=== PATIENT | female | born 1945 | race Caucasian/White ===

== ENCOUNTER 2017-04-04 15:47 | Observation (INO) ==
[2017-04-04] MEDS ORDERED: Ipratropium/Albuterol Neb 3 ML IH ONE (16:05)
[2017-04-04] MEDS ORDERED: methylPREDNISolone 125 MG/2 ML VIAL IVP ONE (16:05)
[2017-04-04] MEDS ORDERED: Azithromycin 500 MG in D5% in Water 250 ML IVPB ONE (16:05)
--- NOTE | 2017-04-04 16:09 | Emergency Department Note ---
Disposition Clinical Impression: Pneumonia Qualifiers: Pneumonia type: due to unspecified organism Laterality: bilateral Lung location : lower lobe of lung Qualified Code(s): J18.9 - Pneumonia, unspecified organism Disposition: Admitted As Inpatient Condition: Good Referrals: Lilliana Kenyon, ARCG[employer] DEVELOPER [Primary Care Provider] - Forms: ED Satisfaction Letter Time of Disposition: 17:28 SOB HPI - General Chief Complaint: ED Shortness of Breath/Dyspnea Stated Complaint: [facility]A from [facility] Time Seen by Provider: 04/04/17 16:00 Source: patient Mode of arrival: EMS Limitations: no limitations Nursing Notes Reviewed: Yes Vital Signs Reviewed: Yes - History of Present Illness 71-year-old female with 5 day history of a cough productive of yellow sputum. She has had intermittent shortness of breath. She has had nausea and vomiting, 2-3 times a day. She has had fever up to 102 degrees yesterday. She denies chest pain. He went to urgent care and had a chest x-ray done. Possibly have pneumonia. She states she was more short of breath there, she feels better now. She was transported by EMS from [facility]. She states she has diarrhea daily, but this is chronic. She also states that she has had some sore throat and rhinorrhea and left ear pain. Pt Subjective Complaint: shortness of breath, cough Onset (ago): day(s) Context: recent illness (5) Severity: moderate Consistency/Duration: intermittent Improves with: oxygen, rest Worsens with: coughing Known history of: asthma Associated symptoms: Reports: nausea/vomiting Treatment prior to arrival: oxygen Cough present: Yes Cough Description: Involuntary Cough Frequency: Intermittent Sputum production: Yes Sputum Amount: Small Sputum Color: Yellow - Related Data Home oxygen amount: none Home Medications Medication Instructions Recorded Confirmed Cyanocobalamin (Vitamin B-12) 2,000 mcg PO DAILY 07/24/15 02/27/16 [Vitamin B-12] Gabapentin [Neurontin] 100 mg PO TID 07/24/15 03/28/16 Gabapentin [Neurontin] 300 mg PO HS 07/24/15 03/28/16 Insulin Glargine [Lantus] 55 unit SQ HS 07/24/15 03/28/16 metFORMIN [Glucophage] 500 mg PO BID 07/24/15 03/28/16 Budesonide/Formoterol 160/4.5 2 puff IH BIDR 03/28/16 03/28/16 [Symbicort 160/4.5] Verapamil [Isoptin] 40 mg PO TID 03/28/16 03/28/16 Aspirin [Lo-Dose Aspirin EC] 81 mg PO 04/04/17 diazePAM [Valium] 2 mg PO BID 04/04/17 04/04/17 Previous Rx's Medication Instructions Recorded Ipratropium [Atrovent Inhaler] 2 puff IH QID PRN #1 inhaler 03/28/16 Allergies Allergy/AdvReac Type Severity Reaction Status Date / Time meperidine [From Demerol] Allergy See Verified 04/04/17 14:00 Comments All systems ED: reviewed and negative except as stated. Constitutional: Reports: fever, chills Eyes: Denies: eye discharge ENT ED: Reports: ear pain, throat pain Cardiovascular: Denies: chest pain Respiratory: Reports: cough, dyspnea, sputum production Gastrointestinal: Reports: nausea, vomiting, diarrhea (Chronic). Denies: abdominal pain Genitourinary: Denies: urgency, dysuria, frequency Musculoskeletal: Denies: back pain, neck pain Neurological: Denies: headache, weakness, numbness, paresthesias Past Medical History - Past Medical History Medical history: Reports: diabetes, hypertension Surgical history: Reports: cholecystectomy, knee replacement, orthopedic, other , other Psychiatric history: Reports: no psych history PERMIT SPECIALIST history: Reports: bilateral tubal ligation - Social History Smoking Status: Never smoker Smokeless Tobacco Status: No Alcohol use: Reports: none Drug use: Reports: none Physical Exam - General Limitations: no limitations General appearance: alert, in no apparent distress - Head Head exam: atraumatic, normocephalic - Eye Eye exam: Present: PERRL, EOMI. Absent: scleral icterus, conjunctival injection - ENT ENT exam: normal oropharynx, mucous membranes moist, TM's normal bilaterally - Neck Neck exam: Present: normal inspection, full ROM, trachea midline. Absent: tenderness, lymphadenopathy - Respiratory Respiratory exam: Present: wheezes, other (Decreased breath sounds in the bases bilaterally). Absent: respiratory distress, accessory muscle use (Rare bilateral expiratory), prolonged expiratory phase - Cardiovascular Cardiovascular exam: Present: regular rate, normal rhythm, normal heart sounds - Abdominal Exam Abdominal exam: Present: soft, Non-Tender, normal bowel sounds. Absent: organomegaly, mass - Extremities Exam Extremities exam: Present: normal inspection, full ROM, normal capillary refill. Absent: pedal edema, calf tenderness - Back Exam Back exam: Absent: CVA tenderness (R), CVA tenderness (L) - Neurological Exam Neurological exam: Present: alert, oriented X3. Absent: motor sensory deficit - Psychiatric Psychiatric exam: Present: normal affect, normal mood - Skin Skin exam: Present: warm, dry, intact, normal color. Absent: cyanosis, diaphoresis Course Vital Signs Temperature 97.7 F 04/04/17 15:49 Pulse Rate 96 04/04/17 15:49 Respiratory Rate 25 04/04/17 15:49 Blood Pressure 157/98 04/04/17 15:49 O2 Sat by Pulse Oximetry 97 04/04/17 15:49 Temperature 97.7 F 04/04/17 17:10 Pulse Rate 92 04/04/17 17:10 Respiratory Rate 16 04/04/17 17:10 Blood Pressure 153/76 04/04/17 17:10 O2 Sat by Pulse Oximetry 98 04/04/17 17:10 Oxygen Delivery Oxygen Delivery Nasal Cannula Shortness of Breath/Dyspnea - MDM Narrative Medical decision making narrative: Differential includes but is not limited to bronchitis with bronchospasm, asthma exacerbation, pneumonia, congestive heart failure, pleural effusion influenza. Her history and x-ray are consistent with pneumonia. There is no evidence of sepsis. She was given nebulizer and Solu-Medrol. Cultures were obtained. She was given Rocephin and azithromycin. I discussed the case with the hospitalist , Dr. Leal. He has accepted patient for admission. - Lab Data Lab results reviewed: Yes I reviewed the patient's lab results. Result diagrams: 04/04/17 16:18 04/04/17 16:18 Lab Results 04/04/17 04/04/17 04/04/17 Range/Units 16:18 16:18 16:18 WBC 6.9 (4.3-11.1) K/mcL RBC 3.54 L (3.82-4.97) M/mcL Hgb 11.1 L (11.5-15.4) g/dL Hct 34.2 L (35.3-44.9) % MCV 96.6 (83.0-100.0) fL MCH 31.4 (28.0-33.3) pg MCHC 32.5 (31.6-35.5) g/dL RDW 12.8 (11.5-14.5) % Plt Count 269 (140-400) K/mcL MPV 9.1 L (9.4-12.4) fL Immature Gran % 0.4 (0-4) % Seg Neutrophils % 56.7 % Lymphocytes % 26.7 % Monocytes % 7.0 % Eosinophils % 8.8 % Basophils % 0.4 % Neutrophils # 3.9 (1.6-8.9) K/mcL Lymphocytes # 1.8 (0.6-4.6) K/mcL Monocytes # 0.5 (0.0-1.3) K/mcL Eosinophils # 0.6 (0.0-0.6) K/mcL Basophils # 0.0 (0.0-0.2) K/mcL Sodium 138 (136-145) mEq/L Potassium 4.4 (3.5-4.5) mEq/L Chloride 103 (98-109) mEq/L Carbon Dioxide 25 (19-29) mEq/L BUN 13 (7-20) mg/dL Creatinine 0.92 (0.57-1.11) mg/dL Est GFR ( Amer) > 60 (> 60) Est GFR (Non-Af Amer) > 60 (> 60) BUN/Creatinine Ratio 14 (6-26) Glucose 255 H (70-99) mg/dL Calculated Osmolality 295 (280-300) Lactic Acid 2.2 (0.5-2.2) mmol/L Calcium 9.4 (8.6-10.8) mg/dL Total Bilirubin 0.3 (0.2-1.2) mg/dL AST 12 (5-34) Units/L ALT 9 (0-55) Units/L Alkaline Phosphatase 60 (38-126) Units/L Troponin I (0-0.03) ng/mL B-Natriuretic Peptide (0-100) pg/mL Serum Total Protein 7.1 (6.0-8.3) g/dL Albumin 3.7 (3.5-5.0) g/dL Globulin 3.4 (2.4-3.5) g/dL Albumin/Globulin Ratio 1.1 (1.1-2.2) 04/04/17 04/04/17 Range/Units 16:18 16:18 WBC (4.3-11.1) K/mcL RBC (3.82-4.97) M/mcL Hgb (11.5-15.4) g/dL Hct (35.3-44.9) % MCV (83.0-100.0) fL MCH (28.0-33.3) pg MCHC (31.6-35.5) g/dL RDW (11.5-14.5) % Plt Count (140-400) K/mcL MPV (9.4-12.4) fL Immature Gran % (0-4) % Seg Neutrophils % % Lymphocytes % % Monocytes % % Eosinophils % % Basophils % % Neutrophils # (1.6-8.9) K/mcL Lymphocytes # (0.6-4.6) K/mcL Monocytes # (0.0-1.3) K/mcL Eosinophils # (0.0-0.6) K/mcL Basophils # (0.0-0.2) K/mcL Sodium (136-145) mEq/L Potassium (3.5-4.5) mEq/L Chloride (98-109) mEq/L Carbon Dioxide (19-29) mEq/L BUN (7-20) mg/dL Creatinine (0.57-1.11) mg/dL Est GFR ( Amer) (> 60) Est GFR (Non-Af Amer) (> 60) BUN/Creatinine Ratio (6-26) Glucose (70-99) mg/dL Calculated Osmolality (280-300) Lactic Acid (0.5-2.2) mmol/L Calcium (8.6-10.8) mg/dL Total Bilirubin (0.2-1.2) mg/dL AST (5-34) Units/L ALT (0-55) Units/L Alkaline Phosphatase (38-126) Units/L Troponin I 0.01 (0-0.03) ng/mL B-Natriuretic Peptide 24 (0-100) pg/mL Serum Total Protein (6.0-8.3) g/dL Albumin (3.5-5.0) g/dL Globulin (2.4-3.5) g/dL Albumin/Globulin Ratio (1.1-2.2) - Radiology Data Radiology results reviewed: Yes I reviewed the patient's radiology results. Chest x-ray done at urgent care shows bibasilar infiltrate and/or effusions. - EKG Data EKG attestation: Yes I reviewed and interpreted this EKG. EKG results narrative: Sinus rhythm, rate of 94, age indeterminate inferior infarct, nonspecific ST-T changes. Rhythm strip shows a sinus rhythm with rate 94, AK interval 162 ms, QRS 86 ms with no other ectopy as interpreted by me. No old EKG available for comparison.
[2017-04-04 16:33] LABS: Basophils % 0.4 %; Eosinophils # 0.6 K/mcL (0.0-0.6); Eosinophils % 8.8 %; Hematocrit 34.2 % (35.3-44.9); Hemoglobin 11.1 g/dL (11.5-15.4); Immature Granulocytes % 0.4 % (0-4); Lymphocytes # 1.8 K/mcL (0.6-4.6); Lymphocytes % 26.7 %; Mean Corpuscular HGB Conc 32.5 g/dL (31.6-35.5); Mean Corpuscular Hemoglobin 31.4 pg (28.0-33.3); Mean Corpuscular Volume 96.6 fL (83.0-100.0); Mean Platelet Volume 9.1 fL (9.4-12.4); Monocytes # 0.5 K/mcL (0.0-1.3); Neutrophils # 3.9 K/mcL (1.6-8.9); Platelet Count 269 K/mcL (140-400); Red Blood Count 3.54 M/mcL (3.82-4.97); Red Cell Distribution Width 12.8 % (11.5-14.5); Segmented Neutrophils % 56.7 %
[2017-04-04 16:53] LABS: Alanine Aminotransferase 9 Units/L (0-55); Albumin 3.7 g/dL (3.5-5.0); Albumin/Globulin Ratio 1.1 (1.1-2.2); Alkaline Phosphatase 60 Units/L (38-126); Aspartate Amino Transferase 12 Units/L (5-34); BUN/Creatinine Ratio 14 (6-26); Bilirubin,Total 0.3 mg/dL (0.2-1.2); Blood Urea Nitrogen 13 mg/dL (7-20); Calcium 9.4 mg/dL (8.6-10.8); Carbon Dioxide 25 mEq/L (19-29); Chloride 103 mEq/L (98-109); Globulin 3.4 g/dL (2.4-3.5); Glucose 255 mg/dL (70-99); Osmolality,Calculated 295 (280-300); Potassium 4.4 mEq/L (3.5-4.5); Sodium 138 mEq/L (136-145); Total Protein 7.1 g/dL (6.0-8.3); eGFR For African Americans > 60 (> 60); eGFR For Non-African Americans > 60 (> 60)
[2017-04-04] MEDS ORDERED: Naloxone 0.4 MG/ML INJ IVP PRN (18:17)
[2017-04-04] MEDS ORDERED: Acetaminophen 325 MG TABLET PO PRN (18:17)
[2017-04-04] MEDS ORDERED: Azithromycin 500 MG in D5% in Water 250 ML IVPB SCH (19:30)
[2017-04-04] MEDS ORDERED: cefTRIAXone 1,000 MG in Water for inj. (sterile) 10 ML IVPB SCH (19:30)
[2017-04-04] MEDS: Ipratropium/Albuterol Neb 3 ML IH SCH ×2 (19:40→23:41)
[2017-04-04] MEDS: Gabapentin 300 MG CAPSULE PO SCH (20:04)
[2017-04-04] MEDS: diazePAM 2 MG TABLET PO SCH (20:04)
[2017-04-04] MEDS: MethylPREDNISolone 40 MG/ML VIAL IVP SCH (20:05)
[2017-04-04] MEDS ORDERED: *HR* Metformin 500 MG TABLET PO SCH (21:00)
[2017-04-04] MEDS ORDERED: Insulin DETEMIR 100 UNIT/ML per UNIT SQ ONE (21:00)
[2017-04-05] MEDS: Ipratropium/Albuterol Neb 3 ML IH SCH ×3 (04:52→17:41)
[2017-04-05] MEDS: MethylPREDNISolone 40 MG/ML VIAL IVP SCH (05:20)
[2017-04-05] MEDS ORDERED: *HR* Enoxaparin 30 MG/0.3 ML SYRINGE SQ SCH (06:00)
[2017-04-05] MEDS: Gabapentin 100 MG CAPSULE PO SCH ×3 (07:55→16:59)
[2017-04-05] MEDS: Cyanocobalamin (B-12) 1,000 MCG TABLET PO SCH (07:59)
[2017-04-05] MEDS: diazePAM 2 MG TABLET PO SCH (08:00)
[2017-04-05] MEDS: Aspirin Enteric Coated 81 MG Tablet PO SCH (08:00)
[2017-04-05] MEDS ORDERED: methylPREDNISolone 125 MG/2 ML VIAL IVP SCH ×2 (08:00→16:00)
[2017-04-05] MEDS ORDERED: *HR* Metformin 500 MG TABLET PO SCH (08:00)
[2017-04-05] MEDS ORDERED: D5% in Water 1,000 ML IVC PRN (11:30)
[2017-04-05] MEDS ORDERED: Dextrose Gel 15 GM PO PRN ×2 (11:30)
[2017-04-05] MEDS ORDERED: *HR* Dextrose 50 % in Water (Syg) 50 ML SYRINGE IVP PRN (11:30)
[2017-04-05] MEDS: Insulin LISPRO 300 UNITS/3 ML VIAL SQ SCH ×2 (12:02→16:33)
[2017-04-05] MEDS ORDERED: diazePAM 2 MG TABLET PO PRN (12:41)
--- NOTE | 2017-04-05 12:43 | Internal Med History&Physical ---
Date of Encounter: 04/05/17 Time of Encounter: 12:10 Assessment and Plan (1) SOB (shortness of breath) Current visit: No Status: Acute Etiology not determined. Will order d-dimer and proceed with chest CT (with contrast if indicated). Room air oximetry will be checked prior to discharge. Further workup will be done as needed. (2) Hypertension Current visit: Yes Status: Chronic He reports using verapamil once daily instead of 3 times a day as her medication list states. Will monitor blood pressure and adjust dose as needed. Qualifiers: Hypertension type: essential hypertension Qualified Code(s): I10 - Essential (primary) hypertension (3) Anemia Current visit: Yes Status: Acute We will order anemia testing. She does not know why she is on aspirin 81 mg daily. Qualifiers: Anemia type: unspecified type Qualified Code(s): D64.9 - Anemia, unspecified Internal Medicine - H&P: HPI Chief complaint: Dyspnea Admitted From: Home Plans for Post Hospital Care: Home History of present illness: Ms. Tomlinson is a 71 year old female who was sent from urgent care to emergency room after she presented with worsening dyspnea. Chest x-ray at urgent care showed possible pneumonia. She was admitted to [facility] floor for ongoing care needs. She reports her dyspnea began approximately 2 years ago but worsened in the past 30 days. She has had a cough productive of yellow sputum. She was diagnosed with asthma several months ago at an emergency room visit but has not had PFTs. She does not use home oxygen. She is a lifelong nonsmoker and denies other chronic lung disease. Past Med Surg Social Fam HX - Past Medical History Medical history: diabetes, hypertension Psychiatric history: no psych history - Past Surgical History Surgical History: cholecystectomy, knee replacement, orthopedic, other, other - Social History Smoking Status: Never smoker Smokeless Tobacco Status: No Alcohol use: none Drug use: none - Family History Mother Hx Family Cardiac Disorders: Yes (grandparents, unknown) Hx Family Respiratory Disorders: Yes (Asthma) Hx Family Cancer: Yes (daughter, appendix cancer. dad neck) Hx Family GI Disorders: No Hx Family Genitourinary Disorders: Yes (diarrhea) Hx Family Endocrine Disorder: Yes (DM) Hx Family Musculoskeletal Disorders: No Hx Family Neuromuscular Disorders: No Hx Family Neurologic Disorders: No Hx Family HEENT Disorders: No Hx Family Autoimmune Disorders: No Hx Family Reproductive Disorders: No Hx Family Psychosocial Disorders: No Hx Family Medical Disorders: No Internal Medicine - H&P: Meds Cyanocobalamin (Vitamin B-12) [Vitamin B-12] 2,000 mcg PO DAILY 07/24/15 [ History] Gabapentin [Neurontin] 100 mg PO TID 07/24/15 [History] Gabapentin [Neurontin] 300 mg PO HS 07/24/15 [History] Insulin Glargine [Lantus] 55 unit SQ HS 07/24/15 [History] metFORMIN [Glucophage] 500 mg PO BID 07/24/15 [History] Budesonide/Formoterol 160/4.5 [Symbicort 160/4.5] 2 puff IH BIDR 03/28/16 [ History] Ipratropium [Atrovent Inhaler] 2 puff IH QID PRN #1 inhaler 03/28/16 [Rx] Verapamil [Isoptin] 40 mg PO TID 03/28/16 [History] Aspirin [Lo-Dose Aspirin EC] 81 mg PO DAILY 04/04/17 [History] diazePAM [Valium] 2 mg PO BID 04/04/17 [History] 3 Allergy/AdvReac Type Severity Reaction Status Date / Time meperidine [From Demerol] Allergy See Verified 04/04/17 14:00 Comments All Systems PM: A 10-system review of systems was performed and is negative for pertinent findings except as documented above in the HPI. Review of systems: Gen.: She states her weight has been stable past few months Cardiovascular: She has history of hypertension. She has occasional sharp chest pains with associated dyspnea in her mid chest area. These been present for several years without diagnosis made. She denies DVT pulmonary embolus or heart failure. Respiratory: As per history of present illness GI: She has had cholecystectomy. She denies disorders of her liver or exocrine pancreas : She has had kidney stones in the past. She has had azotemia in the past but does not have documented chronic kidney disease to her knowledge. She is uncertain if she follows with a roll picker. Neurologic: She denies large distribution strokes or seizures. She has diabetic peripheral neuropathy. She thinks she has had TIAs in the past. Endocrine: She was diagnosed with DM 2 approximately 1999. She has hyperlipidemia but no known thyroid disease Hematology/oncology: She has anemia with history of B12 deficiency. She denies internal malignancies or blood disorders Psychiatric: She denies anxiety depression or other mental health issues Musk skeletal: She has had pain in her neck back and shoulders and follows with a pain specialist. She has bilateral carpal tunnel syndrome. She has had bilateral knee replacements in 1999. She had right femur fracture 2010. She denies gout or osteoporosis. - Constitutional Vitals: Temp Pulse Resp BP Pulse Ox 98.7 F 107 24 112/67 93 04/05/17 11:35 04/05/17 11:35 04/05/17 11:35 04/05/17 11:35 04/05/17 11:35 Exam: Gen.: She is a well-developed well-nourished female sitting on the side of the bed who appears in minimal distress at present time HEENT: Head is atraumatic and normocephalic. Eyes: EOMI. There is no scleral icterus. Mouth: Mucosa is moist. Neck: Supple and nontender. There is no thyromegaly or adenopathy noted. Heart: Regular with rate approximately 108/m. No murmurs or gallops are heard. Lungs: No wheezes or crackles are heard. Abdomen: Soft and nontender. No masses or guarding are noted. Extremities: There is no cyanosis edema or clubbing noted. Dorsalis pedis and posttibial pulses are trace to 1+ palpable bilaterally. Neurologic: Mental status: She is talkative and a good historian. Cranial nerves: Smile is symmetric. Forehead wrinkles bilaterally. Tongue protrudes midline. EOMI. Motor: There is no pronator drift. Cerebellar: Finger to nose is intact bilaterally. Skin: Warm and dry Internal Med - H&P Results - Labs CBC & Chem 7: 04/04/17 16:18 04/04/17 16:18
[2017-04-05] MEDS: Benzonatate 100 MG CAPSULE PO SCH ×3 (13:16→20:12)
--- NOTE | 2017-04-05 14:21 | Electrocardiograph Report ---
[address] [address] Test Date: 2017-04-04 Pat Name: Angelica Tomlinson Department: [id number] Room: [facility] Gender: F Alterations Supervisor: Sanju : 1945 Requested By: Bull Yuen Order Number: [id number] Reading MD: Enid Ibanez Measurements Intervals [place] Rate: 94 P: -6 FL: 162 QRS: 15 QRSD: 86 T: 54 QT: 327 QTc: 379 Interpretive Statements SINUS RHYTHM Electronically Signed On 04-05-2017 14:19:04 EST by Enid Ibanez
[2017-04-05] MEDS ORDERED: cefTRIAXone 1,000 MG in Water for inj. (sterile) 10 ML IVPB SCH (16:00)
[2017-04-05] MEDS ORDERED: Azithromycin 500 MG in D5% in Water 250 ML IVPB SCH (17:00)
[2017-04-05] MEDS: Gabapentin 300 MG CAPSULE PO SCH (20:12)
[2017-04-05] MEDS ORDERED: Insulin LISPRO 300 UNITS/3 ML VIAL SQ SCH (21:00)
[2017-04-05] MEDS ORDERED: Insulin DETEMIR 100 UNIT/ML X5UNITS SQ SCH (21:00)
[2017-04-06] MEDS ORDERED: *HR* Enoxaparin 40 MG/0.4 ML SYRINGE SQ SCH (06:00)
[2017-04-06] MEDS: Ipratropium/Albuterol Neb 3 ML IH PRN ×2 (06:04→13:26)
[2017-04-06 06:19] LABS: Basophils % 0.1 %; Hematocrit 30.3 % (35.3-44.9); Hemoglobin 9.8 g/dL (11.5-15.4); Immature Granulocytes % 1.2 % (0-4); Lymphocytes # 0.9 K/mcL (0.6-4.6); Mean Corpuscular HGB Conc 32.3 g/dL (31.6-35.5); Mean Corpuscular Hemoglobin 31.2 pg (28.0-33.3); Mean Corpuscular Volume 96.5 fL (83.0-100.0); Mean Platelet Volume 9.3 fL (9.4-12.4); Monocytes # 0.8 K/mcL (0.0-1.3); Monocytes % 4.2 %; Neutrophils # 16.5 K/mcL (1.6-8.9); Platelet Count 286 K/mcL (140-400); Red Blood Count 3.14 M/mcL (3.82-4.97); Red Cell Distribution Width 13.2 % (11.5-14.5); Segmented Neutrophils % 89.5 %
[2017-04-06] MEDS: Aspirin Enteric Coated 81 MG Tablet PO SCH (08:22)
[2017-04-06] MEDS: Benzonatate 100 MG CAPSULE PO SCH ×2 (08:22→15:21)
[2017-04-06] MEDS: Insulin LISPRO 300 UNITS/3 ML VIAL SQ SCH ×2 (08:22→12:39)
[2017-04-06] MEDS: Gabapentin 100 MG CAPSULE PO SCH ×2 (08:22→12:39)
[2017-04-06] MEDS: Cyanocobalamin (B-12) 1,000 MCG TABLET PO SCH (08:22)
[2017-04-06 10:43] VITALS: BP 142/68
--- NOTE | 2017-04-06 10:47 | Discharge Summary ---
Date of Encounter: 04/06/17 Time of Encounter: 10:20 - Discharge Diagnosis (1) Hypoxemia Priority: Primary Status: Acute (2) Hypertension Priority: Secondary Status: Chronic Qualifiers: Hypertension type: essential hypertension Qualified Code(s): I10 - Essential (primary) hypertension (3) Anemia Priority: Secondary Status: Acute Qualifiers: Anemia type: unspecified type Qualified Code(s): D64.9 - Anemia, unspecified - Discharge Medications Prescriptions: Cefuroxime PO [Ceftin] 500 mg PO Q12HR #6 tablet Azithromycin [Zithromax] 250 mg PO DAILY #3 tablet Lactobacillus [Culturelle] 1 each PO BID #6 cap.sprink Home Medications: Cyanocobalamin (Vitamin B-12) [Vitamin B-12] 2,000 mcg PO DAILY 07/24/15 [ History] Gabapentin [Neurontin] 100 mg PO TID 07/24/15 [History] Gabapentin [Neurontin] 300 mg PO HS 07/24/15 [History] Insulin Glargine [Lantus] 55 unit SQ HS 07/24/15 [History] metFORMIN [Glucophage] 500 mg PO BID 07/24/15 [History] Budesonide/Formoterol 160/4.5 [Symbicort 160/4.5] 2 puff IH BIDR 03/28/16 [ History] Ipratropium [ATROVENT Inhaler] 2 puff IH QID PRN #1 inhaler 03/28/16 [Rx] Aspirin [Lo-Dose Aspirin EC] 81 mg PO DAILY 04/04/17 [History] diazePAM [Valium] 2 mg PO BID 04/04/17 [History] Valsartan [Diovan] 80 mg PO DAILY 04/05/17 [History] Azithromycin [Zithromax] 250 mg PO DAILY #3 tablet 04/06/17 [Rx] Cefuroxime PO [Ceftin] 500 mg PO Q12HR #6 tablet 04/06/17 [Rx] Lactobacillus [Culturelle] 1 each PO BID #6 cap.sprink 04/06/17 [Rx] Allergies/Adverse Reactions: 3 Allergy/AdvReac Type Severity Reaction Status Date / Time meperidine [From Demerol] Allergy See Verified 04/04/17 14:00 Comments Procedures/tests Complete & Pending: Procedures Performed prior 72 hours Category Date Time Status CTA chest [CT angio chest] [CT] Routine Cat Scan 04/05/17 14:07 Completed Date of admission: 04/04/17 18:03 Primary care physician: Lilliana Kenyon CNP - Patient Status Disposition: Home, Self-Care Condition: Good Functional capacity at discharge: independent ambulation Overall status at discharge: patient is progressing back to baseline - Discharge Instructions Follow Up With: Lilliana Kenyon CNP [Primary Care Provider] - 1 week - Diet and Activity Activity: resume usual activities as tolerated, wear oxygen at all times Diet: advance to your usual diet Hospital course: Ms. Tomlinson is a 71 year old female who was sent from urgent care to emergency room after she presented with worsening dyspnea. Chest x-ray at urgent care showed possible pneumonia. She was admitted to [facility] for ongoing care needs. Initial orders were written by the emergency room physician. I saw her on April 05 and performed the history and physical. D-dimer returned elevated at 758. Chest CT was done but showed no evidence pulmonary embolism or acute pulmonary abnormality. Room air oximetry on April 06 showed saturations decreasing to 87% and patient developed dyspnea within 1 minute of removing oxygen while the patient was still sitting. Oxygen was immediately reapplied for the patient's safety and comfort. She will be prescribed home oxygen at 2 L /m by nasal cannula 06/12 with portable gas & concentrator. Diagnosis is hypoxemia with probable COPD. Consideration for referral to petrographer for PFTs etc. can be made by her PCP. Anemia testing was ordered with results pending at time of discharge. The WBC brandon to 18.4 on the day of discharge with 89.5% segs. She will be given 3 days of anabiotic and probiotic at discharge. On April 06 she felt stable for discharge home. She will follow with her PCP Lilliana Kenyon CNP within 1 week. - Time Spent with Patient Total time spent providing and/or coordinating discharge services: - Constitutional Vitals: Temp Pulse Resp BP Pulse Ox 98.2 F 102 18 142/68 96 04/06/17 10:42 04/06/17 10:42 04/06/17 10:42 04/06/17 10:42 04/06/17 10:42
[2017-04-06 11:07] LABS: % Iron Saturation 25 % (15-50); Iron 79 mcg/dL (50-170); Transferrin 229 mg/dL (180-382)
[2017-04-06 11:24] LABS: Ferritin 61 ng/ml (5-204)
[2017-04-06 11:40] LABS: Folate 8.9 ng/mL (7.0-31.4)
== END 2017-04-06 16:50 | disposition home or self-care (01) ==
LOC: EMEROOPIK 15:47 → INPPIK 15:47
PROVIDERS: ADMIT Internal Medicine; ATTEND Internal Medicine

== ENCOUNTER 2017-06-12 06:38 | Observation (INO) ==
[2017-06-12] MEDS ORDERED: Levofloxacin 750 MG/150 ML 750 MG/150 ML BAG IVPB ONE (06:44)
[2017-06-12] MEDS ORDERED: Ipratropium/Albuterol Neb 3 ML IH ONE (06:44)
[2017-06-12] MEDS ORDERED: methylPREDNISolone 125 MG/2 ML VIAL IVP ONE (06:44)
--- NOTE | 2017-06-12 06:47 | Emergency Department Note ---
Disposition Clinical Impression: Acute exacerbation of chronic obstructive airways disease Disposition: Admitted As Inpatient Condition: Fair Referrals: Lilliana Kenyon, SALES SUPPORT CONSULTANT [Primary Care Provider] - Forms: ED Satisfaction Letter SOB HPI - General Chief Complaint: ED Shortness of Breath/Dyspnea Stated Complaint: KEYA/intermittant chest pain Time Seen by Provider: 06/12/17 06:39 Source: patient, EMS Mode of arrival: EMS Limitations: no limitations Nursing Notes Reviewed: Yes Vital Signs Reviewed: Yes - History of Present Illness The patient reports she has had increased shortness of breath for about a week. This morning she felt like she could not breathe and a squad was called for her to be brought in for evaluation. She reports tightness with her breathing but denies any other specific chest pain to me. She relates that all of her chest discomfort has been associated with her breathing or coughing. She has had a cough but is not bringing up significant phlegm. She states she has been around multiple people who have been ill. She now reports some abdominal discomfort that is also associated with her breathing and cough. She denies nausea, vomiting or diarrhea. She denies any extremity swelling or pain. She has had some chills but no definite fever. She has been on home oxygen at 1 L which EMS has increased to 2 L. EMS transmitted an EKG performed at 6:28 AM. This showed a sinus rhythm with a rate of 101, axis of 68, VT interval 106 and a QT/QTC of 342/413. She has a lot of baseline artifact but no acute ST or T- wave changes for ischemia or infarction. This is unlike interpretation. Pt Subjective Complaint: shortness of breath, cough, pain with inspiration Onset (ago): day(s) Context: recent illness Severity: severe Consistency/Duration: gradually worsening Improves with: oxygen, upright position Worsens with: lying flat, exertion, coughing Known history of: COPD Associated symptoms: Reports: pain with inspiration, cough, wheezing, abdominal pain. Denies: chest pain, fever, sputum production, orthopnea, lower extremity pain, polyuria, polydipsia, parasthesias, palpitations, hemoptysis, diaphoresis , nausea/vomiting, syncope, rash Treatment prior to arrival: oxygen Cough present: Yes Cough Description: Voluntary, Hacking, Bronchospastic Cough Frequency: Intermittent Sputum production: No - Related Data Home oxygen amount: 1 liter Home Medications Medication Instructions Recorded Confirmed Cyanocobalamin (Vitamin B-12) 2,000 mcg PO DAILY 07/24/15 04/04/17 [Vitamin B-12] Gabapentin [Neurontin] 100 mg PO TID 07/24/15 04/04/17 Gabapentin [Neurontin] 300 mg PO HS 07/24/15 04/04/17 Insulin Glargine [Lantus] 55 unit SQ HS 07/24/15 04/04/17 metFORMIN [Glucophage] 500 mg PO BID 07/24/15 04/04/17 Budesonide/Formoterol 160/4.5 2 puff IH BIDR 03/28/16 04/04/17 [Symbicort 160/4.5] Aspirin [Lo-Dose Aspirin EC] 81 mg PO DAILY 04/04/17 04/04/17 diazePAM [Valium] 2 mg PO BID 04/04/17 04/04/17 Valsartan [Diovan] 80 mg PO DAILY 04/05/17 04/05/17 Previous Rx's Medication Instructions Recorded Ipratropium [ATROVENT Inhaler] 2 puff IH QID PRN #1 inhaler 03/28/16 Azithromycin [Zithromax] 250 mg PO DAILY #3 tablet 04/06/17 Cefuroxime PO [Ceftin] 500 mg PO Q12HR #6 tablet 04/06/17 Lactobacillus [Culturelle] 1 each PO BID #6 cap.sprink 04/06/17 Allergies Allergy/AdvReac Type Severity Reaction Status Date / Time meperidine [From Demerol] Allergy See Verified 04/04/17 14:00 Comments All systems ED: reviewed and negative except as stated. Past Medical History - Past Medical History Attestation: Yes The following information was validated with the patient. Source: patient, old records reviewed, nursing notes reviewed Medical history: Reports: asthma, COPD, diabetes, hypertension Surgical history: Reports: cholecystectomy, knee replacement, orthopedic, other , other Psychiatric history: Reports: no psych history POND SAWYER history: Reports: bilateral tubal ligation - Social History Smoking Status: Never smoker Smokeless Tobacco Status: No Alcohol use: Reports: none Drug use: Reports: none Physical Exam - General Limitations: physical limitation General appearance: alert, anxious, in distress - Head Head exam: atraumatic, normocephalic, normal inspection - Eye Eye exam: Present: normal appearance, PERRL, EOMI. Absent: conjunctival injection - ENT ENT exam: normal exam, normal oropharynx, mucous membranes moist - Neck Neck exam: Present: normal inspection, full ROM, trachea midline - Chest Chest inspection: Present: normal inspection, symmetric chest wall rise - Respiratory Respiratory exam: Present: respiratory distress, wheezes, prolonged expiratory phase - Cardiovascular Cardiovascular exam: Present: regular rate, normal rhythm, tachycardia, normal heart sounds - Abdominal Exam Abdominal exam: Present: soft, Non-Tender, normal bowel sounds. Absent: tenderness, distention, guarding, rebound, rigidity, mass, pulsatile mass - Extremities Exam Extremities exam: Present: normal inspection, full ROM, normal capillary refill. Absent: tenderness, pedal edema, calf tenderness - Expanded Lower Extremity Exam Neurovascular/Tendon exam: Present: normal capillary refill. Absent: motor deficit, sensory deficit, tendon deficit Gait: not tested/not observed - Back Exam Back exam: Present: normal inspection, full ROM. Absent: tenderness - Neurological Exam Neurological exam: Present: alert, oriented X3 - Psychiatric Psychiatric exam: Present: agitated, anxious - Skin Skin exam: Present: warm, dry, intact, normal color. Absent: diaphoresis, pallor Course Course Narrative: 0740: All testing has been discussed with the patient and Dr. Leal. I feel be prudent to have her in for continued observation and respiratory protocol. She is improved at this time but is still mildly dyspneic and wheezy. Her blood pressures come down to 153/69 and she is saturating currently at 99% on supplemental oxygen with a heart rate of 92. Verbal orders have been received for her observation period Vital Signs Temperature 97.0 F L 06/12/17 06:42 Pulse Rate 103 06/12/17 06:42 Respiratory Rate 22 06/12/17 06:42 Blood Pressure 181/100 06/12/17 06:42 O2 Sat by Pulse Oximetry 98 06/12/17 06:42 Temperature 97.0 F L 06/12/17 06:42 Pulse Rate 99 06/12/17 07:13 Respiratory Rate 20 06/12/17 07:13 Blood Pressure 151/70 06/12/17 07:13 O2 Sat by Pulse Oximetry 99 06/12/17 07:13 Oxygen Delivery Oxygen Delivery Nasal Cannula Shortness of Breath/Dyspnea - Differential Diagnosis Likely: acute exacerbation of chronic obstructive airways disease (Influenza), congestive heart failure, pneumonia, asthma with exacerbation - Medical Records Medical records reviewed: Yes I reviewed the patient's medical records. - Lab Data Lab results reviewed: Yes I reviewed the patient's lab results. Lab results narrative: Influenza A and influenza B are negative. Result diagrams: 06/12/17 06:55 06/12/17 06:55 Lab Results 06/12/17 06/12/17 06/12/17 Range/Units 06:55 06:55 06:55 WBC 8.8 (4.3-11.1) K/mcL RBC 3.55 L (3.82-4.97) M/mcL Hgb 11.1 L (11.5-15.4) g/dL Hct 34.3 L (35.3-44.9) % MCV 96.6 (83.0-100.0) fL MCH 31.3 (28.0-33.3) pg MCHC 32.4 (31.6-35.5) g/dL RDW 13.0 (11.5-14.5) % Plt Count 272 (140-400) K/mcL MPV 9.1 L (9.4-12.4) fL Immature Gran % 0.3 (0-4) % Seg Neutrophils % 55.7 % Lymphocytes % 20.2 % Monocytes % 6.0 % Eosinophils % 17.3 % Basophils % 0.5 % Neutrophils # 4.9 (1.6-8.9) K/mcL Lymphocytes # 1.8 (0.6-4.6) K/mcL Monocytes # 0.5 (0.0-1.3) K/mcL Eosinophils # 1.5 H (0.0-0.6) K/mcL Basophils # 0.0 (0.0-0.2) K/mcL PT (9.4-12.1) Seconds INR APTT (26.0-36.0) Seconds Sodium 137 (136-145) mEq/L Potassium 3.8 (3.5-5.1) mEq/L Chloride 101 (98-107) mEq/L Carbon Dioxide 28 (23-29) mEq/L BUN 11 (8-23) mg/dL Creatinine 0.67 (0.60-1.20) mg/dL Est GFR ( Amer) > 60 (> 60) Est GFR (Non-Af Amer) > 60 (> 60) BUN/Creatinine Ratio 16 (6-26) Glucose 220 H (70-105) mg/dL Calculated Osmolality 290 (280-300) Lactic Acid 1.1 (0.5-2.2) mmol/L Calcium 9.7 (8.6-10.3) mg/dL Troponin I (< 0.04) ng/mL B-Natriuretic Peptide (Less than 100) pg/mL Urine Color (Yellow) Urine Clarity (Clear) Urine pH (5.0-8.0) pH Units Ur Specific [place] (1.010-1.025) Urine Protein (Neg-Trace) mg/dL Urine Glucose (UA) (Normal) mg/dL Urine Ketones (Negative) mg/dL Urine Blood (Negative) Urine Nitrite (Negative) Urine Bilirubin (Negative) Urine Urobilinogen (Normal) mg/dL Ur Leukocyte Esterase (Negative) Urine Microscopic RBC (0-3) per hpf Urine Microscopic WBC (0-3) per hpf Ur Squamous Epith Cells (None-Few) per lpf Urine Bacteria (None-Few) per hpf Hyaline Casts (None-Few) per lpf Urine Mucus (Few) Ur Culture Indicated? (NO) 06/12/17 06/12/17 06/12/17 Range/Units 06:55 06:55 06:55 WBC (4.3-11.1) K/mcL RBC (3.82-4.97) M/mcL Hgb (11.5-15.4) g/dL Hct (35.3-44.9) % MCV (83.0-100.0) fL MCH (28.0-33.3) pg MCHC (31.6-35.5) g/dL RDW (11.5-14.5) % Plt Count (140-400) K/mcL MPV (9.4-12.4) fL Immature Gran % (0-4) % Seg Neutrophils % % Lymphocytes % % Monocytes % % Eosinophils % % Basophils % % Neutrophils # (1.6-8.9) K/mcL Lymphocytes # (0.6-4.6) K/mcL Monocytes # (0.0-1.3) K/mcL Eosinophils # (0.0-0.6) K/mcL Basophils # (0.0-0.2) K/mcL PT 10.5 (9.4-12.1) Seconds INR 1.0 APTT 27.8 (26.0-36.0) Seconds Sodium (136-145) mEq/L Potassium (3.5-5.1) mEq/L Chloride (98-107) mEq/L Carbon Dioxide (23-29) mEq/L BUN (8-23) mg/dL Creatinine (0.60-1.20) mg/dL Est GFR ( Amer) (> 60) Est GFR (Non-Af Amer) (> 60) BUN/Creatinine Ratio (6-26) Glucose (70-105) mg/dL Calculated Osmolality (280-300) Lactic Acid (0.5-2.2) mmol/L Calcium (8.6-10.3) mg/dL Troponin I < 0.03 (< 0.04) ng/mL B-Natriuretic Peptide 27 (Less than 100) pg/mL Urine Color (Yellow) Urine Clarity (Clear) Urine pH (5.0-8.0) pH Units Ur Specific [place] (1.010-1.025) Urine Protein (Neg-Trace) mg/dL Urine Glucose (UA) (Normal) mg/dL Urine Ketones (Negative) mg/dL Urine Blood (Negative) Urine Nitrite (Negative) Urine Bilirubin (Negative) Urine Urobilinogen (Normal) mg/dL Ur Leukocyte Esterase (Negative) Urine Microscopic RBC (0-3) per hpf Urine Microscopic WBC (0-3) per hpf Ur Squamous Epith Cells (None-Few) per lpf Urine Bacteria (None-Few) per hpf Hyaline Casts (None-Few) per lpf Urine Mucus (Few) Ur Culture Indicated? (NO) 06/12/17 Range/Units 07:27 WBC (4.3-11.1) K/mcL RBC (3.82-4.97) M/mcL Hgb (11.5-15.4) g/dL Hct (35.3-44.9) % MCV (83.0-100.0) fL MCH (28.0-33.3) pg MCHC (31.6-35.5) g/dL RDW (11.5-14.5) % Plt Count (140-400) K/mcL MPV (9.4-12.4) fL Immature Gran % (0-4) % Seg Neutrophils % % Lymphocytes % % Monocytes % % Eosinophils % % Basophils % % Neutrophils # (1.6-8.9) K/mcL Lymphocytes # (0.6-4.6) K/mcL Monocytes # (0.0-1.3) K/mcL Eosinophils # (0.0-0.6) K/mcL Basophils # (0.0-0.2) K/mcL PT (9.4-12.1) Seconds INR APTT (26.0-36.0) Seconds Sodium (136-145) mEq/L Potassium (3.5-5.1) mEq/L Chloride (98-107) mEq/L Carbon Dioxide (23-29) mEq/L BUN (8-23) mg/dL Creatinine (0.60-1.20) mg/dL Est GFR ( Amer) (> 60) Est GFR (Non-Af Amer) (> 60) BUN/Creatinine Ratio (6-26) Glucose (70-105) mg/dL Calculated Osmolality (280-300) Lactic Acid (0.5-2.2) mmol/L Calcium (8.6-10.3) mg/dL Troponin I (< 0.04) ng/mL B-Natriuretic Peptide (Less than 100) pg/mL Urine Color Yellow (Yellow) Urine Clarity Clear (Clear) Urine pH 5.0 (5.0-8.0) pH Units Ur Specific [place] 1.025 (1.010-1.025) Urine Protein 30 H (Neg-Trace) mg/dL Urine Glucose (UA) Normal (Normal) mg/dL Urine Ketones Negative (Negative) mg/dL Urine Blood Trace-intact H (Negative) Urine Nitrite Negative (Negative) Urine Bilirubin Negative (Negative) Urine Urobilinogen Normal (Normal) mg/dL Ur Leukocyte Esterase Trace H (Negative) Urine Microscopic RBC 0-3 (0-3) per hpf Urine Microscopic WBC 5-15 H (0-3) per hpf Ur Squamous Epith Cells Moderate H (None-Few) per lpf Urine Bacteria Few (None-Few) per hpf Hyaline Casts Few (None-Few) per lpf Urine Mucus Few (Few) Ur Culture Indicated? YES A (NO) - Radiology Data Radiology results reviewed: Yes I reviewed the patient's radiology results. Single view chest x-ray is performed. This does not demonstrate evidence for infiltrate, effusion, pneumothorax, foreign body or heart failure. Patient has mild hyperexpansion consistent with COPD. The cardiac silhouette is normal. I do not see abnormality to the osseous structures of the chest. This is on my interpretation. Impressions Chest X-Ray 06/12/17 06:44 IMPRESSION: No acute cardiopulmonary process. D/ / Kenneth Zhou MD / Kenneth Zhou MD Interpreting Provider: Kenneth Zhou MD - EKG Data EKG attestation: Yes I reviewed and interpreted this EKG. EKG shows normal: Reports: sinus rhythm, axis, intervals, QRS complexes, ST-T waves Rate: Reports: tachycardia (104) Interpretation: Reports: no acute changes, nonspecific ST-T wave changes
[2017-06-12 07:11] LABS: Basophils % 0.5 %; Eosinophils # 1.5 K/mcL (0.0-0.6); Eosinophils % 17.3 %; Hematocrit 34.3 % (35.3-44.9); Hemoglobin 11.1 g/dL (11.5-15.4); Immature Granulocytes % 0.3 % (0-4); Lymphocytes # 1.8 K/mcL (0.6-4.6); Lymphocytes % 20.2 %; Mean Corpuscular HGB Conc 32.4 g/dL (31.6-35.5); Mean Corpuscular Hemoglobin 31.3 pg (28.0-33.3); Mean Corpuscular Volume 96.6 fL (83.0-100.0); Mean Platelet Volume 9.1 fL (9.4-12.4); Monocytes # 0.5 K/mcL (0.0-1.3); Neutrophils # 4.9 K/mcL (1.6-8.9); Platelet Count 272 K/mcL (140-400); Red Blood Count 3.55 M/mcL (3.82-4.97); Segmented Neutrophils % 55.7 %
[2017-06-12 07:17] LABS: Prothrombin Time 10.5 Seconds (9.4-12.1)
[2017-06-12 07:20] LABS: Activated Partial Thrombo Time 27.8 Seconds (26.0-36.0)
[2017-06-12 07:28] LABS: BUN/Creatinine Ratio 16 (6-26); Blood Urea Nitrogen 11 mg/dL (8-23); Calcium 9.7 mg/dL (8.6-10.3); Carbon Dioxide 28 mEq/L (23-29); Chloride 101 mEq/L (98-107); Glucose 220 mg/dL (70-105); Osmolality,Calculated 290 (280-300); Potassium 3.8 mEq/L (3.5-5.1); Sodium 137 mEq/L (136-145); eGFR For African Americans > 60 (> 60); eGFR For Non-African Americans > 60 (> 60)
[2017-06-12 07:32] LABS: Bilirubin,Urine Negative (Negative); Blood,Urine Trace-intact (Negative); Clarity,Urine Clear (Clear); Color,Urine Yellow (Yellow); Glucose,Urine (UA) Normal (Normal); Ketones,Urine Negative (Negative); Leukocyte Esterase,Urine Trace (Negative); Nitrite,Urine Negative (Negative); Protein,Urine 30 mg/dL (Neg-Trace); Specific Gravity,Urine 1.025 (1.010-1.025); Urobilinogen,Urine Normal (Normal)
[2017-06-12 07:39] LABS: RBC,Urine 0-3 per hpf (0-3); Squamous Epithelial Cell,Urine Moderate per lpf (None-Few)
[2017-06-12 07:40] LABS: Bacteria,Urine Few per hpf (None-Few); Hyaline Casts,Urine Few per lpf (None-Few); Mucus,Urine Few (Few)
[2017-06-12] MEDS ORDERED: D5% in Water 1,000 ML IVC PRN (08:05)
[2017-06-12] MEDS ORDERED: Acetaminophen 325 MG TABLET PO PRN (08:05)
[2017-06-12] MEDS ORDERED: predniSONE 20 MG TABLET PO SCH (08:05)
[2017-06-12] MEDS ORDERED: MOM Conc 10 ML UD.LIQ PO PRN (08:05)
[2017-06-12] MEDS ORDERED: Dextrose Gel 15 GM PO PRN ×2 (08:05)
[2017-06-12] MEDS ORDERED: *HR* Dextrose 50 % in Water (Syg) 50 ML SYRINGE IVP PRN (08:05)
[2017-06-12] MEDS ORDERED: Naloxone 0.4 MG/ML INJ IVP PRN (08:05)
[2017-06-12] MEDS: Ondansetron 4 MG/2 ML VIAL IVP PRN (09:14)
[2017-06-12] MEDS ORDERED: Ipratropium/Albuterol Neb 3 ML IH SCH (10:00)
--- NOTE | 2017-06-12 11:15 | Internal Med History&Physical ---
Date of Encounter: 06/12/17 Time of Encounter: 10:45 Assessment and Plan (1) Acute exacerbation of chronic obstructive airways disease Current visit: Yes Status: Acute Will restart Symbicort and continue Spiriva. Will use albuterol nebs as needed. (2) Anemia Current visit: No Status: Acute Anemia testing 04/06/2017 showed iron 79, transferrin saturation 25%, transferrin 229, ferritin 61, B12 1464, and folate 8.9. Hemoglobin stable at 11.1. Will monitor as needed. Qualifiers: Anemia type: unspecified type Qualified Code(s): D64.9 - Anemia, unspecified (3) Hypertension Current visit: No Status: Chronic Continue Diovan Qualifiers: Hypertension type: essential hypertension Qualified Code(s): I10 - Essential (primary) hypertension (4) DM type 2 (diabetes mellitus, type 2) Current visit: Yes Status: Chronic Hemoglobin A1c was 10.6% on 12/21/2013. Will recheck in a.m. Qualifiers: Diabetes mellitus complication status: without complication Diabetes mellitus fci insulin use: with termite control servicer use Qualified Code(s): E11.9 - Type 2 diabetes mellitus without complications; Z79.4 - terminal superintendent (current) use of insulin; Z79.4 - group home (current) use of insulin; Z79.4 - terminal superintendent ( current) use of insulin; Z79.4 - terminal superintendent (current) use of insulin Internal Medicine - H&P: HPI Chief complaint: Dyspnea Admitted From: Emergency Dept Plans for Post Hospital Care: Home History of present illness: Ms. Tomlinson is a 72 year old female who came to emergency room complaining of increased dyspnea with diarrhea and dry heaves for approximately one week. She had minimal cough with productivity. She had soreness in her upper chest. She states she ran out of her Symbicort inhaler approximately 1 week ago and did not get refills. She was evaluated in emergency room and felt to have exacerbation of COPD and was admitted to [facility] floor for ongoing care needs. She was hospitalized at [facility] March 2017 with dyspnea. She was found to have hypoxemia and has used oxygen 24/7 since discharge. She is a lifelong nonsmoker but has been diagnosed with asthma and hypoxemia. She is scheduled to see a sales team manager at [facility] 07/18/2017. Chest CT 04/04/2017 showed no acute abnormalities. Past Med Surg Social Fam HX - Past Medical History Medical history: asthma, COPD, diabetes, hypertension Psychiatric history: no psych history - Past Surgical History Surgical History: cholecystectomy, knee replacement, orthopedic, other, other - Social History Smoking Status: Never smoker Smokeless Tobacco Status: No Alcohol use: none Drug use: none - Family History Mother Hx Family Cardiac Disorders: Yes (grandparents, unknown) Hx Family Respiratory Disorders: Yes (Asthma) Hx Family Cancer: Yes (daughter, appendix cancer. dad neck) Hx Family GI Disorders: No Hx Family Endocrine Disorder: Yes (DM) Hx Family Neuromuscular Disorders: No Hx Family Neurologic Disorders: No Hx Family HEENT Disorders: No Hx Family Autoimmune Disorders: No Internal Medicine - H&P: Meds Cyanocobalamin (Vitamin B-12) [Vitamin B-12] 2,000 mcg PO DAILY 07/24/15 [ History] Gabapentin [Neurontin] 100 mg PO TID 07/24/15 [History] Gabapentin [Neurontin] 300 mg PO HS 07/24/15 [History] Insulin Glargine [Lantus] 55 unit SQ HS 07/24/15 [History] metFORMIN [Glucophage] 500 mg PO BID 07/24/15 [History] Budesonide/Formoterol 160/4.5 [Symbicort 160/4.5] 2 puff IH BIDR 03/28/16 [ History] Ipratropium [ATROVENT Inhaler] 2 puff IH QID PRN #1 inhaler 03/28/16 [Rx] Aspirin [Lo-Dose Aspirin EC] 81 mg PO DAILY 04/04/17 [History] Valsartan [Diovan] 80 mg PO DAILY 04/05/17 [History] 3 Allergy/AdvReac Type Severity Reaction Status Date / Time meperidine [From Demerol] Allergy See Verified 04/04/17 14:00 Comments All Systems PM: A 10-system review of systems was performed and is negative for pertinent findings except as documented above in the HPI. Review of systems: Gen.: Her weight has decreased from 71.299 kg on 04/06/2017 to 68.039 kg on admission now. Cardiovascular: She has history of hypertension. She has occasional sharp chest pains with associated dyspnea in her mid chest area. These been present for several years without diagnosis made. She denies DVT pulmonary embolus or heart failure. Respiratory: As per history of present illness GI: She has had cholecystectomy. She denies disorders of her liver or exocrine pancreas. She states she has had loose stools frequently over the last 15 years. : She has had kidney stones in the past. She has had azotemia in the past but does not have documented chronic kidney disease to her knowledge. Neurologic: She denies large distribution strokes or seizures. She has diabetic peripheral neuropathy. She thinks she has had TIAs in the past. Endocrine: She was diagnosed with DM 2 approximately 1999. She has hyperlipidemia but no known thyroid disease Hematology/oncology: She has anemia with history of B12 deficiency. She denies internal malignancies or blood disorders Psychiatric: She denies anxiety depression or other mental health issues Musk skeletal: She has had pain in her neck back and shoulders and follows with a pain specialist. She has bilateral carpal tunnel syndrome. She has had bilateral knee replacements in 1999. She had right femur fracture 2010. She denies gout or osteoporosis. - Constitutional Vitals: Temp Pulse Resp BP Pulse Ox 98.4 F 91 20 147/83 98 06/12/17 08:25 06/12/17 08:25 06/12/17 08:27 06/12/17 08:27 06/12/17 08:36 Exam: Gen.: She is a well-developed well-nourished female who appears in no acute distress at present time HEENT: Head is atraumatic and normocephalic. Eyes: EOMI. There is no scleral icterus. Mouth: Mucosa is moist. Neck: Supple and nontender. There is no thyromegaly or adenopathy noted. Heart: Regular without murmurs gallops or ectopics Lungs: She has diminished breath sounds diffusely. No expiratory wheezing is heard. Abdomen: Bowel sounds are diminished. The abdomen is nontender to palpation. Extremities: She is wearing MERRY hose bilaterally which I did not remove. There is no edema of the dorsum of the feet or lower legs. She has mild DJD changes of her hands. Neurologic: Mental status: She is talkative and a good historian. Cranial nerves: Smile is symmetric. Forehead wrinkles bilaterally. Tongue protrudes midline. EOMI. Motor: There is no pronator drift. Cerebellar: finger to nose intact bilaterally. Skin: Warm and dry Internal Med - H&P Results - Labs CBC & Chem 7: 06/12/17 06:55 06/12/17 06:55
[2017-06-12] MEDS: Budesonide/Formoterol 160/4.5 MDI IH SCH ×2 (11:27→21:50)
[2017-06-12] MEDS: Insulin LISPRO 300 UNITS/3 ML VIAL SQ SCH ×3 (11:32→22:06)
[2017-06-12] MEDS: Valsartan 80 MG TABLET PO SCH (14:19)
[2017-06-12] MEDS: predniSONE 20 MG TABLET PO SCH (16:21)
[2017-06-12] MEDS: Albuterol 2.5 MG/3 ML NEBULIZER IH PRN ×2 (18:08→21:50)
[2017-06-12] MEDS: Lactobacillus 1 EACH CAP.SPRINK PO SCH (19:38)
[2017-06-13] MEDS: Albuterol 2.5 MG/3 ML NEBULIZER IH PRN ×3 (00:16→05:26)
[2017-06-13] MEDS: Gabapentin 300 MG CAPSULE PO SCH ×2 (01:08→20:24)
[2017-06-13] MEDS: Ondansetron 4 MG/2 ML VIAL IVP PRN (05:11)
[2017-06-13] MEDS: Levofloxacin 750 MG/150 ML 750 MG/150 ML BAG IVPB SCH (05:18)
[2017-06-13 06:58] LABS: Basophils % 0.1 %; Hematocrit 31.1 % (35.3-44.9); Hemoglobin 10.3 g/dL (11.5-15.4); Immature Granulocytes % 0.5 % (0-4); Lymphocytes # 0.8 K/mcL (0.6-4.6); Lymphocytes % 6.7 %; Mean Corpuscular HGB Conc 33.1 g/dL (31.6-35.5); Mean Corpuscular Hemoglobin 31.9 pg (28.0-33.3); Mean Corpuscular Volume 96.3 fL (83.0-100.0); Monocytes # 0.7 K/mcL (0.0-1.3); Monocytes % 6.1 %; Neutrophils # 10.3 K/mcL (1.6-8.9); Platelet Count 270 K/mcL (140-400); Red Blood Count 3.23 M/mcL (3.82-4.97); Red Cell Distribution Width 13.1 % (11.5-14.5); Segmented Neutrophils % 86.6 %
[2017-06-13] MEDS: Insulin LISPRO 300 UNITS/3 ML VIAL SQ SCH ×4 (07:54→20:10)
[2017-06-13] MEDS: Valsartan 80 MG TABLET PO SCH (08:06)
[2017-06-13] MEDS: Lactobacillus 1 EACH CAP.SPRINK PO SCH ×2 (08:06→20:24)
[2017-06-13] MEDS: predniSONE 20 MG TABLET PO SCH (08:06)
[2017-06-13] MEDS: Budesonide/Formoterol 160/4.5 MDI IH SCH ×2 (09:27→22:01)
[2017-06-13] MEDS: Tiotropium 18 MCG inhalation IH SCH (09:28)
[2017-06-13] MEDS ORDERED: MOM Conc 10 ML UD.LIQ PO PRN (09:41)
[2017-06-13] MEDS ORDERED: Ondansetron 4 MG/2 ML VIAL IVP PRN (09:42)
[2017-06-13] MEDS ORDERED: Insulin DETEMIR 100 UNIT/ML X5UNITS SQ SCH (09:45)
--- NOTE | 2017-06-13 09:45 | Internal Med Progress Note ---
Date of Encounter: 06/13/17 Time of Encounter: 09:35 - Assessment and plan (1) Acute exacerbation of chronic obstructive airways disease Current Visit: Yes Status: Acute Assessment and plan: June 13. Continue Symbicort, Spiriva and prn albuterol nebs. (2) Anemia Current Visit: No Status: Acute Assessment and plan: June 13. Hemoglobin decreased slightly to 10.3. We will continue to monitor labs. Qualifiers: Anemia type: unspecified type Qualified Code(s): D64.9 - Anemia, unspecified (3) Hypertension Current Visit: No Status: Chronic Assessment and plan: June 13. Continue Diovan. Will add low-dose metoprolol to improve blood pressure and heart rate. Qualifiers: Hypertension type: essential hypertension Qualified Code(s): I10 - Essential (primary) hypertension (4) DM type 2 (diabetes mellitus, type 2) Current Visit: Yes Status: Chronic Assessment and plan: June 13. Hemoglobin A1c is pending. We will restart Glucophage and Levemir/ Lantus Qualifiers: Diabetes mellitus complication status: without complication Diabetes mellitus longterm insulin use: with longterm use Qualified Code(s): E11.9 - Type 2 diabetes mellitus without complications; Z79.4 - penitentiary (current) use of insulin; Z79.4 - lobsterman (current) use of insulin; Z79.4 - lobsterman ( current) use of insulin; Z79.4 - lobsterman (current) use of insulin - Subjective Interval history: June 13. She has no new complaints except feels nauseated. She does not feel her dyspnea has significantly improved. - Constitutional Vitals: Temp Pulse Resp BP Pulse Ox 97.5 F L 116 18 147/64 100 06/13/17 06:32 06/13/17 08:04 06/13/17 09:27 06/13/17 08:04 06/13/17 09:27 Exam: She is resting comfortably in bed. Her lungs show diminished breath sounds but no wheezing. Heart rate is approximately 110/m. I reviewed her medications and lab results. Internal Medicine: Result - Labs CBC & Chem 7: 06/13/17 06:50 06/12/17 06:55 Labs: Short CBC 06/13/17 Range/Units 06:50 WBC 11.9 H (4.3-11.1) K/mcL Hgb 10.3 L (11.5-15.4) g/dL Hct 31.1 L (35.3-44.9) % Plt Count 270 (140-400) K/mcL Neutrophils # 10.3 H (1.6-8.9) K/mcL - ABG Interpretation ABG results: PT/INR, D-dimer PT 10.5 Seconds (9.4-12.1) 06/12/17 06:55 Consult Discharge Plan - Plan Referrals: Lilliana Kenyon, [employer] D[employer]ER [Primary Care Provider] - 1 week
[2017-06-13] MEDS ORDERED: ALPRAZolam 0.5 MG TABLET PO PRN (10:26)
[2017-06-13 11:00] LABS: Hemoglobin A1C 7.7 %
[2017-06-13] MEDS: *HR* Metformin 500 MG TABLET PO SCH (16:15)
[2017-06-14 04:04] LABS: Basophils % 0.2 %; Eosinophils % 0.1 %; Hematocrit 30.1 % (35.3-44.9); Hemoglobin 9.7 g/dL (11.5-15.4); Immature Granulocytes % 0.5 % (0-4); Lymphocytes # 1.8 K/mcL (0.6-4.6); Lymphocytes % 18.3 %; Mean Corpuscular HGB Conc 32.2 g/dL (31.6-35.5); Mean Corpuscular Hemoglobin 31.6 pg (28.0-33.3); Mean Platelet Volume 9.3 fL (9.4-12.4); Monocytes # 0.6 K/mcL (0.0-1.3); Monocytes % 6.3 %; Neutrophils # 7.3 K/mcL (1.6-8.9); Platelet Count 260 K/mcL (140-400); Red Blood Count 3.07 M/mcL (3.82-4.97); Red Cell Distribution Width 13.4 % (11.5-14.5); Segmented Neutrophils % 74.6 %
[2017-06-14] MEDS: Levofloxacin 750 MG/150 ML 750 MG/150 ML BAG IVPB SCH (05:33)
[2017-06-14 06:35] LABS: Carbon Dioxide 29 mEq/L (23-29); Chloride 102 mEq/L (98-107); Potassium 4.3 mEq/L (3.5-5.1); Sodium 138 mEq/L (136-145)
[2017-06-14 06:36] LABS: BUN/Creatinine Ratio 23 (6-26); Blood Urea Nitrogen 19 mg/dL (8-23); Calcium 8.8 mg/dL (8.6-10.3); Glucose 185 mg/dL (70-105); Osmolality,Calculated 293 (280-300); eGFR For African Americans > 60 (> 60); eGFR For Non-African Americans > 60 (> 60)
[2017-06-14 06:48] VITALS: BP 108/61
[2017-06-14] MEDS: Valsartan 80 MG TABLET PO SCH (08:53)
[2017-06-14] MEDS: *HR* Metformin 500 MG TABLET PO SCH (08:53)
[2017-06-14] MEDS: Lactobacillus 1 EACH CAP.SPRINK PO SCH (08:53)
[2017-06-14] MEDS: Insulin LISPRO 300 UNITS/3 ML VIAL SQ SCH ×2 (08:54→12:47)
[2017-06-14] MEDS ORDERED: Insulin DETEMIR 100 UNIT/ML X5UNITS SQ SCH (09:00)
[2017-06-14] MEDS: Budesonide/Formoterol 160/4.5 MDI IH SCH (09:22)
[2017-06-14] MEDS: Tiotropium 18 MCG inhalation IH SCH (09:22)
--- NOTE | 2017-06-14 10:26 | Discharge Summary ---
Date of Encounter: 06/14/17 Time of Encounter: 10:15 - Discharge Diagnosis (1) Acute exacerbation of chronic obstructive airways disease Priority: Primary Status: Acute (2) Anemia Priority: Secondary Status: Acute Qualifiers: Anemia type: unspecified type Qualified Code(s): D64.9 - Anemia, unspecified (3) Hypertension Priority: Secondary Status: Chronic Qualifiers: Hypertension type: essential hypertension Qualified Code(s): I10 - Essential (primary) hypertension (4) DM type 2 (diabetes mellitus, type 2) Priority: Secondary Status: Chronic Qualifiers: Diabetes mellitus complication status: without complication Diabetes mellitus ferry terminal agent insulin use: with ferry terminal agent use Qualified Code(s): E11.9 - Type 2 diabetes mellitus without complications; Z79.4 - assisted (current) use of insulin; Z79.4 - rn long term care (current) use of insulin; Z79.4 - assisted ( current) use of insulin; Z79.4 - rn long term care (current) use of insulin - Discharge Medications Prescriptions: Budesonide/Formoterol 160/4.5 [Symbicort 160/4.5] 2 puff IH BIDR #1 inhaler Home Medications: Cyanocobalamin (Vitamin B-12) [Vitamin B-12] 2,000 mcg PO DAILY 07/24/15 [ History] Gabapentin [Neurontin] 100 mg PO TID 07/24/15 [History] Gabapentin [Neurontin] 300 mg PO HS 07/24/15 [History] Insulin Glargine [Lantus] 55 unit SQ HS 07/24/15 [History] metFORMIN [Glucophage] 500 mg PO BID 07/24/15 [History] Ipratropium [ATROVENT Inhaler] 2 puff IH QID PRN #1 inhaler 03/28/16 [Rx] Valsartan [Diovan] 80 mg PO DAILY 04/05/17 [History] Aspirin [Lo-Dose Aspirin EC] 81 mg PO Q48H #0 06/14/17 [Rx] Budesonide/Formoterol 160/4.5 [Symbicort 160/4.5] 2 puff IH BIDR #1 inhaler [Rx] Allergies/Adverse Reactions: 3 Allergy/AdvReac Type Severity Reaction Status Date / Time meperidine [From Demerol] Allergy See Verified 04/04/17 14:00 Comments Date of admission: 06/12/17 07:56 Primary care physician: Lilliana Kenyon CNP - Patient Status Disposition: Home, Self-Care Condition: Fair Functional capacity at discharge: independent ambulation Overall status at discharge: patient is progressing back to baseline - Discharge Instructions Follow Up With: Lilliana Kenyon CNP [Primary Care Provider] - 1 week - Diet and Activity Activity: resume usual activities as tolerated, wear oxygen at all times Diet: advance to your usual diet Hospital course: Ms. Tomlinson is a 72 year old female who came to emergency room complaining of increased dyspnea with diarrhea and dry heaves for approximately one week. She had minimal cough with productivity. She had soreness in her upper chest. She states she ran out of her Symbicort inhaler approximately 1 week ago and did not get refills. She was evaluated in emergency room and felt to have exacerbation of COPD and was admitted to [facility] for ongoing care needs. Initial orders were written by the emergency room physician. I saw her on June 12 and performed the history and physical. She was restarted on Symbicort and continue Spiriva. Albuterol nebulizer treatments were given as needed. Prednisone was given in emergency room but I did not continue this since she had no evidence of bronchospasm. She had significant clinical improvement felt back to her baseline and stable for discharge home on June 14. She will follow with her PCP within one week. Hemoglobin decreased to 9.7 by day of discharge. I told her to decrease aspirin to every other day. Hemoglobin A1c returns slightly elevated at 7.7%. Her PCP can adjust diabetic medications as needed. - Time Spent with Patient Total time spent providing and/or coordinating discharge services: - Constitutional Vitals: Temp Pulse Resp BP Pulse Ox 97.4 F L 72 16 108/61 96 06/14/17 06:45 06/14/17 06:45 06/14/17 09:28 06/14/17 06:45 06/14/17 09:28 - VTE Documentation of Mechanical Device: Graduated compression elastic hosiery
--- NOTE | 2017-06-14 17:23 | Electrocardiograph Report ---
[address] [address] Test Date: 2017-06-12 Pat Name: Angelica Tomlinson Department: [id number] Room: [facility] Gender: F [employer] Manager: [id number] : 1945 Requested By: Soy Cedeno Order Number: [id number] Reading MD: Tristan Ibanez Measurements Intervals [place] Rate: 104 P: 68 KS: 173 QRS: 58 QRSD: 90 T: 73 QT: 278 QTc: 339 Interpretive Statements SINUS TACHYCARDIA NONSPECIFIC T-WAVE ABNORMALITY ABNORMAL RHYTHM ECG Electronically Signed On 06-14-2017 17:21:16 EST by Tristan Ibanez
== END 2017-06-14 13:40 | disposition home or self-care (01) ==
LOC: EMEROOPIK 06:38 → INPPIK 06:38
PROVIDERS: ADMIT Internal Medicine; ATTEND Internal Medicine

== ENCOUNTER 2019-07-22 19:54 | Inpatient (IN) ==
[2019-07-22] MEDS ORDERED: Ipratropium/Albuterol Neb 3 ML IH ONE (20:24)
[2019-07-22] MEDS ORDERED: methylPREDNISolone 125 MG/2 ML VIAL IVP ONE (20:24)
[2019-07-22 20:54] LABS: Basophils % 0.4 %; Eosinophils # 0.5 K/mcL (0.0-0.6); Hematocrit 32.9 % (35.3-44.9); Hemoglobin 10.5 g/dL (11.5-15.4); Immature Granulocytes % 0.4 % (0-4); Lymphocytes # 1.2 K/mcL (0.6-4.6); Lymphocytes % 18.1 %; Mean Corpuscular HGB Conc 31.9 g/dL (31.6-35.5); Mean Corpuscular Volume 100.3 fL (83.0-100.0); Mean Platelet Volume 8.9 fL (9.4-12.4); Monocytes # 0.6 K/mcL (0.0-1.3); Neutrophils # 4.4 K/mcL (1.6-8.9); Platelet Count 299 K/mcL (140-400); Red Blood Count 3.28 M/mcL (3.82-4.97); Segmented Neutrophils % 64.1 %; White Blood Count 6.8 K/mcL (4.3-11.1)
[2019-07-22 21:12] LABS: BUN/Creatinine Ratio 18 (6-26); Blood Urea Nitrogen 12 mg/dL (8-23); Calcium 9.1 mg/dL (8.6-10.3); Carbon Dioxide 32 mEq/L (23-29); Chloride 99 mEq/L (98-107); Glucose 104 mg/dL (70-105); Osmolality,Calculated 282 (280-300); Potassium 3.7 mEq/L (3.5-5.1); Sodium 136 mEq/L (136-145); eGFR For African Americans > 60 (> 60); eGFR For Non-African Americans > 60 (> 60)
[2019-07-22 21:13] LABS: Troponin I < 0.03 ng/mL (< 0.04)
[2019-07-23] MEDS ORDERED: Naloxone 0.4 MG/ML INJ IVP PRN (00:16)
[2019-07-23] MEDS: 0.9 % Sodium Chloride 1,000 ML IVC SCH ×2 (01:04→11:52)
[2019-07-23] MEDS: Ipratropium/Albuterol Neb 3 ML IH SCH ×6 (01:18→20:53)
[2019-07-23] MEDS ORDERED: *HR* Dextrose 50 % in Water (Syg) 50 ML SYRINGE IVP PRN (04:54)
[2019-07-23] MEDS ORDERED: D5% in Water 1,000 ML IVC PRN (04:54)
[2019-07-23] MEDS ORDERED: Dextrose Gel 15 GM/37.5 ML TUBE PO PRN ×2 (04:54)
[2019-07-23] MEDS: Insulin LISPRO 300 UNITS/3 ML VIAL SQ SCH ×5 (05:06→19:55)
[2019-07-23] MEDS: Budesonide/Formoterol 160/4.5 1 PUFF INH IH SCH ×2 (07:32→22:20)
[2019-07-23] MEDS ORDERED: MethylPREDNISolone 40 MG/ML VIAL IVP SCH (08:00)
[2019-07-23] MEDS ORDERED: *HR* Dextrose 50 % in Water (Vial) 50 ML VIAL IVP PRN (08:45)
[2019-07-23] MEDS: methylPREDNISolone 125 MG/2 ML VIAL IVP SCH ×3 (08:48→23:05)
[2019-07-23] MEDS: Aspirin Enteric Coated 81 MG Tablet PO SCH (08:51)
[2019-07-23] MEDS: Gabapentin 300 MG CAPSULE PO SCH ×3 (08:51→19:53)
[2019-07-23] MEDS: Valsartan 80 MG TABLET PO SCH (08:51)
[2019-07-23] MEDS ORDERED: *HR* Metformin 500 MG TABLET PO SCH (09:00)
[2019-07-23] MEDS ORDERED: Tiotropium 18 MCG inhalation IH SCH ×2 (09:00→10:00)
[2019-07-23] MEDS ORDERED: Azithromycin 500 MG in 0.9 % Sodium Chloride 250 ML IVPB ONE (09:57)
[2019-07-23] MEDS ORDERED: cefTRIAXone 1,000 MG in Water for inj. (sterile) 10 ML IVPB SCH (12:00)
[2019-07-23] MEDS: *HR* Metformin 500 MG TABLET PO SCH (16:51)
[2019-07-23 17:37] LABS: Estimated Average Glucose 148 mg/dl
[2019-07-23] MEDS: Acetaminophen 325 MG TABLET PO PRN (18:02)
[2019-07-23] MEDS: Insulin DETEMIR 100 UNIT/ML X5UNITS SQ SCH (19:54)
[2019-07-24] MEDS: Ipratropium/Albuterol Neb 3 ML IH SCH ×7 (00:51→21:03)
[2019-07-24] MEDS: Budesonide/Formoterol 160/4.5 1 PUFF INH IH SCH ×3 (07:44→21:06)
[2019-07-24] MEDS: Insulin LISPRO 300 UNITS/3 ML VIAL SQ SCH ×4 (07:45→20:57)
[2019-07-24] MEDS: Gabapentin 300 MG CAPSULE PO SCH ×3 (07:46→20:57)
[2019-07-24] MEDS: Valsartan 80 MG TABLET PO SCH (07:46)
[2019-07-24] MEDS: methylPREDNISolone 125 MG/2 ML VIAL IVP SCH ×2 (07:46→16:51)
[2019-07-24] MEDS: *HR* Metformin 500 MG TABLET PO SCH ×2 (07:46→16:52)
[2019-07-24] MEDS ORDERED: Tiotropium 18 MCG inhalation IH SCH (10:00)
[2019-07-24 10:21] LABS: Hematocrit 29.9 % (35.3-44.9); Hemoglobin 9.6 g/dL (11.5-15.4); Mean Corpuscular HGB Conc 32.1 g/dL (31.6-35.5); Mean Corpuscular Hemoglobin 32.5 pg (28.0-33.3); Mean Corpuscular Volume 101.4 fL (83.0-100.0); Mean Platelet Volume 9.7 fL (9.4-12.4); Platelet Count 314 K/mcL (140-400); Red Blood Count 2.95 M/mcL (3.82-4.97); Red Cell Distribution Width 13.7 % (11.5-14.5); White Blood Count 19.6 K/mcL (4.3-11.1)
[2019-07-24 10:37] LABS: BUN/Creatinine Ratio 25 (6-26); Blood Urea Nitrogen 21 mg/dL (8-23); Calcium 8.7 mg/dL (8.6-10.3); Carbon Dioxide 24 mEq/L (23-29); Chloride 107 mEq/L (98-107); Glucose 218 mg/dL (70-105); Osmolality,Calculated 302 (280-300); Potassium 3.8 mEq/L (3.5-5.1); Sodium 141 mEq/L (136-145); eGFR For African Americans > 60 (> 60); eGFR For Non-African Americans > 60 (> 60)
[2019-07-24] MEDS: Azithromycin 500 MG in 0.9 % Sodium Chloride 250 ML IVPB SCH (11:17)
[2019-07-24] MEDS: Fluticasone Propionate Nasal 50 MCG/SPRAY BOTTLE NS SCH (14:11)
[2019-07-24] MEDS: cefTRIAXone 1,000 MG in 0.9 % Sodium Chloride Mini Bag 100 ML IVPB SCH (14:11)
[2019-07-24] MEDS: Acetaminophen 325 MG TABLET PO PRN (18:14)
[2019-07-24] MEDS: Insulin DETEMIR 100 UNIT/ML X5UNITS SQ SCH (20:57)
[2019-07-25] MEDS: methylPREDNISolone 125 MG/2 ML VIAL IVP SCH ×2 (00:30→08:25)
[2019-07-25] MEDS: Ipratropium/Albuterol Neb 3 ML IH SCH ×5 (00:47→15:34)
[2019-07-25] MEDS: Budesonide/Formoterol 160/4.5 1 PUFF INH IH SCH ×2 (07:44→21:31)
[2019-07-25] MEDS: Azithromycin 500 MG in 0.9 % Sodium Chloride 250 ML IVPB SCH (08:24)
[2019-07-25] MEDS: Valsartan 80 MG TABLET PO SCH (08:25)
[2019-07-25] MEDS: Aspirin Enteric Coated 81 MG Tablet PO SCH (08:25)
[2019-07-25] MEDS: *HR* Metformin 500 MG TABLET PO SCH ×2 (08:25→17:00)
[2019-07-25] MEDS: Gabapentin 300 MG CAPSULE PO SCH ×2 (08:25→14:04)
[2019-07-25] MEDS: Fluticasone Propionate Nasal 50 MCG/SPRAY BOTTLE NS SCH (08:26)
[2019-07-25] MEDS: Insulin LISPRO 300 UNITS/3 ML VIAL SQ SCH ×4 (08:28→20:04)
[2019-07-25] MEDS: Acetaminophen 325 MG TABLET PO PRN (08:43)
[2019-07-25 10:15] LABS: Hematocrit 32.5 % (35.3-44.9); Hemoglobin 10.1 g/dL (11.5-15.4); Mean Corpuscular HGB Conc 31.1 g/dL (31.6-35.5); Mean Corpuscular Volume 102.8 fL (83.0-100.0); Mean Platelet Volume 9.7 fL (9.4-12.4); Platelet Count 332 K/mcL (140-400); Red Blood Count 3.16 M/mcL (3.82-4.97); Red Cell Distribution Width 13.7 % (11.5-14.5); White Blood Count 16.5 K/mcL (4.3-11.1)
[2019-07-25] MEDS ORDERED: 0.9 % Sodium Chloride 1,000 ML IVC ONE (10:39)
[2019-07-25 10:56] LABS: BUN/Creatinine Ratio 35 (6-26); Blood Urea Nitrogen 29 mg/dL (8-23); Calcium 8.5 mg/dL (8.6-10.3); Carbon Dioxide 20 mEq/L (23-29); Chloride 103 mEq/L (98-107); Glucose 410 mg/dL (70-105); Osmolality,Calculated 303 (280-300); Potassium 3.4 mEq/L (3.5-5.1); Sodium 135 mEq/L (136-145); eGFR For African Americans > 60 (> 60); eGFR For Non-African Americans > 60 (> 60)
[2019-07-25] MEDS: cefTRIAXone 1,000 MG in 0.9 % Sodium Chloride Mini Bag 100 ML IVPB SCH (11:30)
[2019-07-25] MEDS ORDERED: Albuterol 2.5 MG/3 ML NEBULIZER IH PRN (16:13)
[2019-07-25] MEDS: Saline Nasal Spray 44 ML BOTTLE NS PRN ×2 (17:49→20:03)
[2019-07-25 19:44] LABS: Adenovirus Not Detected (Not Detect); Coronavirus 229E Not Detected (Not Detect); Coronavirus HKU1 Not Detected (Not Detect); Coronavirus NL63 DETECTED (Not Detect); Coronavirus OC43 Not Detected (Not Detect); Human Metapneumovirus Not Detected (Not Detect); Human Rhinovirus/Enterovirus Not Detected (Not Detect)
[2019-07-25 19:45] LABS: Bordetella Pertussis Not Detected (Not Detect); Chlamydophila pneumoniae Not Detected (Not Detect); Influenza A Subtype 2009 H1 Not Detected (Not Detect); Influenza B Not Detected (Not Detect); Mycoplasma pneumoniae Not Detected (Not Detect); Parainfluenza Virus 1 Not Detected (Not Detect); Parainfluenza Virus 2 Not Detected (Not Detect); Parainfluenza Virus 3 Not Detected (Not Detect); Parainfluenza Virus 4 Not Detected (Not Detect); Respiratory Syncytial Virus Not Detected (Not Detect)
[2019-07-25] MEDS: Insulin DETEMIR 100 UNIT/ML X5UNITS SQ SCH (20:05)
[2019-07-25] MEDS: Nystatin SUSP 5 ML UD.LIQ BC SCH (20:37)
[2019-07-25] MEDS ORDERED: Nystatin SUSP 5 ML UD.LIQ BC SCH (21:00)
[2019-07-26] MEDS: Insulin LISPRO 300 UNITS/3 ML VIAL SQ SCH ×4 (07:38→19:57)
[2019-07-26] MEDS: Gabapentin 300 MG CAPSULE PO SCH ×2 (08:42→14:54)
[2019-07-26] MEDS: Acetaminophen 325 MG TABLET PO PRN (08:42)
[2019-07-26] MEDS: Valsartan 80 MG TABLET PO SCH (08:42)
[2019-07-26] MEDS: *HR* Metformin 500 MG TABLET PO SCH ×2 (08:42→16:41)
[2019-07-26] MEDS: Nystatin SUSP 5 ML UD.LIQ BC SCH ×4 (08:43→19:56)
[2019-07-26] MEDS: Fluticasone Propionate Nasal 50 MCG/SPRAY BOTTLE NS SCH (08:43)
[2019-07-26] MEDS: Saline Nasal Spray 44 ML BOTTLE NS PRN (08:43)
[2019-07-26] MEDS ORDERED: predniSONE 20 MG TABLET PO SCH (09:00)
[2019-07-26] MEDS ORDERED: GuaiFENesin Liq 200 MG/10 ML UDC PO PRN (09:36)
[2019-07-26] MEDS: Budesonide/Formoterol 160/4.5 1 PUFF INH IH SCH ×2 (10:37→22:13)
[2019-07-26] MEDS: Tiotropium 18 MCG inhalation IH SCH (10:37)
[2019-07-26] MEDS: cefTRIAXone 1,000 MG in 0.9 % Sodium Chloride Mini Bag 100 ML IVPB SCH (11:30)
[2019-07-26 12:15] LABS: Hematocrit 31.5 % (35.3-44.9); Mean Corpuscular HGB Conc 31.7 g/dL (31.6-35.5); Mean Corpuscular Hemoglobin 31.7 pg (28.0-33.3); Mean Platelet Volume 9.3 fL (9.4-12.4); Platelet Count 290 K/mcL (140-400); Red Blood Count 3.15 M/mcL (3.82-4.97); Red Cell Distribution Width 13.5 % (11.5-14.5); White Blood Count 12.1 K/mcL (4.3-11.1)
[2019-07-26] MEDS: Azithromycin 500 MG in 0.9 % Sodium Chloride 250 ML IVPB SCH (12:15)
[2019-07-26 12:29] LABS: BUN/Creatinine Ratio 32 (6-26); Blood Urea Nitrogen 23 mg/dL (8-23); Calcium 8.5 mg/dL (8.6-10.3); Carbon Dioxide 29 mEq/L (23-29); Chloride 105 mEq/L (98-107); Glucose 67 mg/dL (70-105); Osmolality,Calculated 294 (280-300); Potassium 4.1 mEq/L (3.5-5.1); Sodium 141 mEq/L (136-145); eGFR For African Americans > 60 (> 60); eGFR For Non-African Americans > 60 (> 60)
[2019-07-26] MEDS ORDERED: Benzonatate 100 MG CAPSULE PO PRN (12:29)
[2019-07-26] MEDS: Insulin DETEMIR 100 UNIT/ML X5UNITS SQ SCH (19:57)
[2019-07-27 07:18] LABS: Hematocrit 30.9 % (35.3-44.9); Mean Corpuscular HGB Conc 32.4 g/dL (31.6-35.5); Mean Corpuscular Hemoglobin 31.9 pg (28.0-33.3); Mean Corpuscular Volume 98.7 fL (83.0-100.0); Mean Platelet Volume 9.5 fL (9.4-12.4); Platelet Count 298 K/mcL (140-400); Red Blood Count 3.13 M/mcL (3.82-4.97); Red Cell Distribution Width 13.1 % (11.5-14.5); White Blood Count 8.4 K/mcL (4.3-11.1)
[2019-07-27 07:27] LABS: BUN/Creatinine Ratio 25 (6-26); Blood Urea Nitrogen 18 mg/dL (8-23); Calcium 8.5 mg/dL (8.6-10.3); Carbon Dioxide 30 mEq/L (23-29); Chloride 99 mEq/L (98-107); Glucose 251 mg/dL (70-105); Osmolality,Calculated 294 (280-300); Potassium 3.8 mEq/L (3.5-5.1); Sodium 137 mEq/L (136-145); eGFR For African Americans > 60 (> 60); eGFR For Non-African Americans > 60 (> 60)
[2019-07-27] MEDS: Valsartan 80 MG TABLET PO SCH (08:51)
[2019-07-27] MEDS: Insulin LISPRO 300 UNITS/3 ML VIAL SQ SCH ×2 (08:51→11:26)
[2019-07-27] MEDS: Aspirin Enteric Coated 81 MG Tablet PO SCH (08:51)
[2019-07-27] MEDS: *HR* Metformin 500 MG TABLET PO SCH (08:51)
[2019-07-27] MEDS: Gabapentin 300 MG CAPSULE PO SCH (08:52)
[2019-07-27] MEDS: Fluticasone Propionate Nasal 50 MCG/SPRAY BOTTLE NS SCH (08:52)
[2019-07-27] MEDS: Nystatin SUSP 5 ML UD.LIQ BC SCH ×2 (08:52→11:32)
[2019-07-27] MEDS ORDERED: predniSONE 10 MG TABLET PO SCH (09:00)
[2019-07-27] MEDS: Tiotropium 18 MCG inhalation IH SCH (10:04)
[2019-07-27] MEDS: Budesonide/Formoterol 160/4.5 1 PUFF INH IH SCH (10:04)
[2019-07-27 10:44] VITALS: BP 162/88
[2019-07-27] MEDS: Acetaminophen 325 MG TABLET PO PRN (13:02)
[2019-07-27] MEDS ORDERED: amLODIPine 5 MG TABLET PO SCH (14:45)
[2019-07-27 16:37] LABS: Adenovirus F 40/41 PCR Not detected (Not detect); Astrovirus PCR Not detected (Not detect); C.difficile Toxin A/B Gene PCR Not detected (Not detect); Campylobacter by PCR Not detected (Not detect); Cryptosporidium by PCR Not detected (Not detect); Cyclospora cayetanensis PCR Not detected (Not detect); E. coli O157 by PCR Not detected (Not detect); Entamoeba histolytica PCR Not detected (Not detect); Enteroaggregative E.coli(EAEC) Not detected (Not detect); Enteropathogenic E.coli(EPEC) Not detected (Not detect); Enterotoxigenic E.coli (ETEC) Not detected (Not detect); Giardia lamblia PCR Not detected (Not detect); Norovirus GI/GII PCR Not detected (Not detect); Plesiomonas shigelloides PCR Not detected (Not detect); Rotavirus A PCR Not detected (Not detect); Salmonella PCR Not detected (Not detect); Sapovirus PCR Not detected (Not detect); Shig/EnteroinvasiveE coli EIEC Not detected (Not detect); Shigalike tox-prod E coli STEC Not detected (Not detect); Vibrio PCR Not detected (Not detect); Vibrio cholerae PCR Not detected (Not detect); Yersinia enterocolitica PCR Not detected (Not detect)
== END 2019-07-27 15:02 | disposition short-term general hospital (02) | DRG 192 ==
LOC: INPPIK 19:54 → EMEROOPIK 19:54 → INPPIK 23:48
PROVIDERS: ADMIT Family Medicine; ATTEND Family Medicine

== ENCOUNTER 2019-07-27 13:07 | Inpatient (IN) ==
[2019-07-27] MEDS ORDERED: D5% in Water 1,000 ML IVC PRN (15:49)
[2019-07-27] MEDS ORDERED: *HR* Dextrose 50 % in Water (Vial) 50 ML VIAL IVP PRN (15:49)
[2019-07-27] MEDS ORDERED: Dextrose Gel 15 GM/37.5 ML TUBE PO PRN ×2 (15:49)
[2019-07-27] MEDS ORDERED: Benzonatate 100 MG CAPSULE PO PRN (16:07)
[2019-07-27] MEDS ORDERED: GuaiFENesin Liq 200 MG/10 ML UDC PO PRN (16:07)
[2019-07-27] MEDS ORDERED: Saline Nasal Spray 44 ML BOTTLE NS PRN (16:07)
[2019-07-27] MEDS ORDERED: Naloxone 0.4 MG/ML INJ IVP PRN (16:07)
[2019-07-27] MEDS: Insulin LISPRO 300 UNITS/3 ML VIAL SQ SCH ×2 (18:13→20:05)
[2019-07-27] MEDS: *HR* Metformin 500 MG TABLET PO SCH (18:13)
[2019-07-27] MEDS: Gabapentin 300 MG CAPSULE PO SCH (20:06)
[2019-07-27] MEDS ORDERED: Insulin DETEMIR 100 UNIT/ML X5UNITS SQ SCH (21:00)
[2019-07-27] MEDS: Acetaminophen 325 MG TABLET PO PRN (21:27)
[2019-07-27] MEDS: Budesonide/Formoterol 160/4.5 1 PUFF INH IH SCH (22:21)
[2019-07-28] MEDS ORDERED: Gabapentin 300 MG CAPSULE ONE (08:42)
[2019-07-28] MEDS ORDERED: Aspirin Enteric Coated 81 MG Tablet PO ONE (08:42)
[2019-07-28] MEDS ORDERED: *HR* Metformin 500 MG TABLET ONE (08:42)
[2019-07-28] MEDS ORDERED: amLODIPine 5 MG TABLET ONE (08:42)
[2019-07-28] MEDS ORDERED: Valsartan 80 MG TABLET ONE (08:42)
[2019-07-28] MEDS: Budesonide/Formoterol 160/4.5 1 PUFF INH IH SCH ×2 (09:30→21:55)
[2019-07-28] MEDS: Tiotropium 18 MCG inhalation IH SCH (09:30)
[2019-07-28] MEDS: Insulin LISPRO 300 UNITS/3 ML VIAL SQ SCH ×4 (16:37→21:26)
[2019-07-28] MEDS: *HR* Metformin 500 MG TABLET PO SCH ×2 (16:37→17:08)
[2019-07-28] MEDS: Aspirin Enteric Coated 81 MG Tablet PO SCH (16:37)
[2019-07-28] MEDS: Fluticasone Propionate Nasal 50 MCG/SPRAY BOTTLE NS SCH (16:37)
[2019-07-28] MEDS: Valsartan 80 MG TABLET PO SCH (16:37)
[2019-07-28] MEDS: predniSONE 20 MG TABLET PO SCH (16:38)
[2019-07-28] MEDS: amLODIPine 5 MG TABLET PO SCH (16:38)
[2019-07-28] MEDS: Gabapentin 300 MG CAPSULE PO SCH ×2 (16:38→19:55)
[2019-07-28] MEDS: Acetaminophen 325 MG TABLET PO PRN (19:55)
[2019-07-28] MEDS: Nystatin SUSP 5 ML UD.LIQ BC SCH (22:11)
[2019-07-29] MEDS: Budesonide/Formoterol 160/4.5 1 PUFF INH IH SCH ×2 (08:10→21:56)
[2019-07-29] MEDS: Tiotropium 18 MCG inhalation IH SCH (08:10)
[2019-07-29] MEDS: Insulin LISPRO 300 UNITS/3 ML VIAL SQ SCH ×4 (08:33→20:51)
[2019-07-29] MEDS: Nystatin SUSP 5 ML UD.LIQ BC SCH ×4 (08:35→19:55)
[2019-07-29] MEDS: predniSONE 20 MG TABLET PO SCH (08:35)
[2019-07-29] MEDS: amLODIPine 5 MG TABLET PO SCH (08:35)
[2019-07-29] MEDS: Gabapentin 300 MG CAPSULE PO SCH ×2 (08:35→19:54)
[2019-07-29] MEDS: *HR* Metformin 500 MG TABLET PO SCH ×2 (08:35→15:57)
[2019-07-29] MEDS: Valsartan 80 MG TABLET PO SCH (08:35)
[2019-07-29] MEDS: Fluticasone Propionate Nasal 50 MCG/SPRAY BOTTLE NS SCH (08:37)
[2019-07-29] MEDS: Acetaminophen 325 MG TABLET PO PRN ×2 (11:18→19:54)
[2019-07-29] MEDS: Insulin DETEMIR 100 UNIT/ML X5UNITS SQ SCH (20:52)
[2019-07-30 07:13] LABS: Hemoglobin 9.8 g/dL (11.5-15.4); Mean Corpuscular HGB Conc 32.7 g/dL (31.6-35.5); Mean Platelet Volume 8.9 fL (9.4-12.4); Platelet Count 288 K/mcL (140-400); Red Blood Count 3.06 M/mcL (3.82-4.97); Red Cell Distribution Width 13.2 % (11.5-14.5); White Blood Count 10.4 K/mcL (4.3-11.1)
[2019-07-30 07:28] LABS: BUN/Creatinine Ratio 29 (6-26); Blood Urea Nitrogen 23 mg/dL (8-23); Calcium 8.7 mg/dL (8.6-10.3); Carbon Dioxide 32 mEq/L (23-29); Chloride 98 mEq/L (98-107); Glucose 251 mg/dL (70-105); Osmolality,Calculated 296 (280-300); Potassium 4.3 mEq/L (3.5-5.1); Sodium 137 mEq/L (136-145); eGFR For African Americans > 60 (> 60); eGFR For Non-African Americans > 60 (> 60)
[2019-07-30] MEDS: Insulin LISPRO 300 UNITS/3 ML VIAL SQ SCH ×4 (08:10→19:46)
[2019-07-30] MEDS: Fluticasone Propionate Nasal 50 MCG/SPRAY BOTTLE NS SCH (08:11)
[2019-07-30] MEDS: Nystatin SUSP 5 ML UD.LIQ BC SCH ×4 (08:11→19:46)
[2019-07-30] MEDS: predniSONE 20 MG TABLET PO SCH (08:11)
[2019-07-30] MEDS: Valsartan 80 MG TABLET PO SCH (08:12)
[2019-07-30] MEDS: Aspirin Enteric Coated 81 MG Tablet PO SCH (08:12)
[2019-07-30] MEDS: amLODIPine 5 MG TABLET PO SCH (08:12)
[2019-07-30] MEDS: *HR* Metformin 500 MG TABLET PO SCH ×2 (08:12→16:58)
[2019-07-30] MEDS: Gabapentin 300 MG CAPSULE PO SCH ×2 (08:12→19:46)
[2019-07-30] MEDS: Tiotropium 18 MCG inhalation IH SCH (11:11)
[2019-07-30] MEDS: Budesonide/Formoterol 160/4.5 1 PUFF INH IH SCH ×2 (11:11→22:21)
[2019-07-30] MEDS: Acetaminophen 325 MG TABLET PO PRN ×2 (11:17→19:46)
[2019-07-30] MEDS: Ibuprofen 400 MG TABLET PO PRN (17:30)
[2019-07-30] MEDS: Insulin DETEMIR 100 UNIT/ML X5UNITS SQ SCH (19:46)
[2019-07-31] MEDS: Insulin LISPRO 300 UNITS/3 ML VIAL SQ SCH ×4 (08:33→21:42)
[2019-07-31] MEDS: Nystatin SUSP 5 ML UD.LIQ BC SCH ×4 (08:45→21:43)
[2019-07-31] MEDS: amLODIPine 5 MG TABLET PO SCH (08:45)
[2019-07-31] MEDS: predniSONE 20 MG TABLET PO SCH (08:45)
[2019-07-31] MEDS: Gabapentin 300 MG CAPSULE PO SCH ×2 (08:45→21:04)
[2019-07-31] MEDS: *HR* Metformin 500 MG TABLET PO SCH ×2 (08:45→16:16)
[2019-07-31] MEDS: Ibuprofen 400 MG TABLET PO PRN ×2 (08:45→16:16)
[2019-07-31] MEDS: Valsartan 80 MG TABLET PO SCH (08:45)
[2019-07-31] MEDS: Fluticasone Propionate Nasal 50 MCG/SPRAY BOTTLE NS SCH (08:46)
[2019-07-31] MEDS: Tiotropium 18 MCG inhalation IH SCH (10:32)
[2019-07-31] MEDS: Budesonide/Formoterol 160/4.5 1 PUFF INH IH SCH ×2 (10:32→21:55)
[2019-07-31] MEDS: Acetaminophen 325 MG TABLET PO PRN ×2 (12:10→21:04)
[2019-07-31] MEDS ORDERED: Insulin DETEMIR 100 UNIT/ML X5UNITS SQ SCH (21:00)
[2019-08-01] MEDS: amLODIPine 5 MG TABLET PO SCH (08:38)
[2019-08-01] MEDS: Acetaminophen 325 MG TABLET PO PRN ×3 (08:38→22:55)
[2019-08-01] MEDS: predniSONE 20 MG TABLET PO SCH (08:38)
[2019-08-01] MEDS: Valsartan 80 MG TABLET PO SCH (08:38)
[2019-08-01] MEDS: Gabapentin 300 MG CAPSULE PO SCH ×2 (08:38→20:21)
[2019-08-01] MEDS: Aspirin Enteric Coated 81 MG Tablet PO SCH (08:38)
[2019-08-01] MEDS: *HR* Metformin 500 MG TABLET PO SCH ×2 (08:39→16:20)
[2019-08-01] MEDS: Insulin LISPRO 300 UNITS/3 ML VIAL SQ SCH ×4 (08:39→20:26)
[2019-08-01] MEDS: Nystatin SUSP 5 ML UD.LIQ BC SCH ×4 (08:40→20:20)
[2019-08-01] MEDS: Fluticasone Propionate Nasal 50 MCG/SPRAY BOTTLE NS SCH (08:40)
[2019-08-01] MEDS: Budesonide/Formoterol 160/4.5 1 PUFF INH IH SCH ×2 (11:04→22:11)
[2019-08-01] MEDS: Tiotropium 18 MCG inhalation IH SCH (11:05)
[2019-08-01] MEDS: Ibuprofen 400 MG TABLET PO PRN (11:54)
[2019-08-01] MEDS: Insulin DETEMIR 100 UNIT/ML X5UNITS SQ SCH (13:50)
[2019-08-02] MEDS: Tiotropium 18 MCG inhalation IH SCH (09:38)
[2019-08-02] MEDS: Budesonide/Formoterol 160/4.5 1 PUFF INH IH SCH ×2 (09:38→21:48)
[2019-08-02] MEDS: amLODIPine 5 MG TABLET PO SCH (09:39)
[2019-08-02] MEDS: Valsartan 80 MG TABLET PO SCH (09:39)
[2019-08-02] MEDS: Fluticasone Propionate Nasal 50 MCG/SPRAY BOTTLE NS SCH (09:39)
[2019-08-02] MEDS: Nystatin SUSP 5 ML UD.LIQ BC SCH ×4 (09:39→20:51)
[2019-08-02] MEDS: Acetaminophen 325 MG TABLET PO PRN ×2 (09:40→20:58)
[2019-08-02] MEDS: *HR* Metformin 500 MG TABLET PO SCH ×2 (09:40→16:48)
[2019-08-02] MEDS: Gabapentin 300 MG CAPSULE PO SCH ×2 (09:40→20:51)
[2019-08-02] MEDS: Insulin LISPRO 300 UNITS/3 ML VIAL SQ SCH ×3 (09:43→16:47)
[2019-08-02] MEDS: Insulin DETEMIR 100 UNIT/ML X5UNITS SQ SCH (09:44)
[2019-08-02] MEDS: Ibuprofen 400 MG TABLET PO PRN (13:58)
[2019-08-02 17:10] LABS: BUN/Creatinine Ratio 28 (6-26); Blood Urea Nitrogen 22 mg/dL (8-23); Calcium 9.2 mg/dL (8.6-10.3); Carbon Dioxide 31 mEq/L (23-29); Chloride 99 mEq/L (98-107); Glucose 185 mg/dL (70-105); Osmolality,Calculated 294 (280-300); Sodium 138 mEq/L (136-145); eGFR For African Americans > 60 (> 60); eGFR For Non-African Americans > 60 (> 60)
[2019-08-02] MEDS ORDERED: *HR* Dextrose 50 % in Water (Syg) 50 ML SYRINGE IVP ONE (17:32)
[2019-08-03 07:00] LABS: BUN/Creatinine Ratio 28 (6-26); Blood Urea Nitrogen 20 mg/dL (8-23); Calcium 8.9 mg/dL (8.6-10.3); Carbon Dioxide 32 mEq/L (23-29); Chloride 100 mEq/L (98-107); Glucose 86 mg/dL (70-105); Osmolality,Calculated 292 (280-300); Potassium 4.6 mEq/L (3.5-5.1); Sodium 140 mEq/L (136-145); eGFR For African Americans > 60 (> 60); eGFR For Non-African Americans > 60 (> 60)
[2019-08-03] MEDS: Fluticasone Propionate Nasal 50 MCG/SPRAY BOTTLE NS SCH (08:41)
[2019-08-03] MEDS: Aspirin Enteric Coated 81 MG Tablet PO SCH (08:42)
[2019-08-03] MEDS: Acetaminophen 325 MG TABLET PO PRN ×2 (08:42→17:47)
[2019-08-03] MEDS: Nystatin SUSP 5 ML UD.LIQ BC SCH ×4 (08:42→20:16)
[2019-08-03] MEDS: Gabapentin 300 MG CAPSULE PO SCH ×2 (08:42→20:16)
[2019-08-03] MEDS: *HR* Metformin 500 MG TABLET PO SCH ×2 (08:42→17:47)
[2019-08-03] MEDS: Valsartan 80 MG TABLET PO SCH (08:43)
[2019-08-03] MEDS: amLODIPine 5 MG TABLET PO SCH (08:43)
[2019-08-03] MEDS: Tiotropium 18 MCG inhalation IH SCH (09:42)
[2019-08-03] MEDS: Budesonide/Formoterol 160/4.5 1 PUFF INH IH SCH ×2 (09:42→21:42)
[2019-08-03 09:46] LABS: Estimated Average Glucose 166 mg/dl
[2019-08-03] MEDS: Ibuprofen 400 MG TABLET PO PRN ×2 (12:07→20:16)
[2019-08-04] MEDS: Valsartan 80 MG TABLET PO SCH (08:35)
[2019-08-04] MEDS: amLODIPine 5 MG TABLET PO SCH (08:35)
[2019-08-04] MEDS: Nystatin SUSP 5 ML UD.LIQ BC SCH ×4 (08:35→19:40)
[2019-08-04] MEDS: Fluticasone Propionate Nasal 50 MCG/SPRAY BOTTLE NS SCH (08:35)
[2019-08-04] MEDS: Gabapentin 300 MG CAPSULE PO SCH ×2 (08:35→19:40)
[2019-08-04] MEDS: *HR* Metformin 500 MG TABLET PO SCH ×2 (08:36→17:47)
[2019-08-04] MEDS: Ibuprofen 400 MG TABLET PO PRN (08:42)
[2019-08-04] MEDS: Tiotropium 18 MCG inhalation IH SCH (10:51)
[2019-08-04] MEDS: Budesonide/Formoterol 160/4.5 1 PUFF INH IH SCH ×2 (10:52→21:55)
[2019-08-04] MEDS: Lactobacillus 1 EACH CAP.SPRINK PO SCH (12:13)
[2019-08-04] MEDS: Psyllium 1 PACKET POWD.PACK PO SCH ×2 (15:25→19:40)
[2019-08-05] MEDS: *HR* Metformin 500 MG TABLET PO SCH ×2 (09:08→18:13)
[2019-08-05] MEDS: amLODIPine 5 MG TABLET PO SCH (09:08)
[2019-08-05] MEDS: Nystatin SUSP 5 ML UD.LIQ BC SCH ×4 (09:08→21:50)
[2019-08-05] MEDS: Valsartan 80 MG TABLET PO SCH (09:09)
[2019-08-05] MEDS: Ibuprofen 400 MG TABLET PO PRN ×2 (09:09→21:50)
[2019-08-05] MEDS: Psyllium 1 PACKET POWD.PACK PO SCH ×3 (09:09→21:50)
[2019-08-05] MEDS: Fluticasone Propionate Nasal 50 MCG/SPRAY BOTTLE NS SCH (09:09)
[2019-08-05] MEDS: Aspirin Enteric Coated 81 MG Tablet PO SCH (09:09)
[2019-08-05] MEDS: Gabapentin 300 MG CAPSULE PO SCH ×2 (09:10→21:50)
[2019-08-05] MEDS: Lactobacillus 1 EACH CAP.SPRINK PO SCH (09:10)
[2019-08-05] MEDS: Budesonide/Formoterol 160/4.5 1 PUFF INH IH SCH ×2 (10:46→22:41)
[2019-08-05] MEDS: Tiotropium 18 MCG inhalation IH SCH (10:47)
[2019-08-05] MEDS: Acetaminophen 325 MG TABLET PO PRN (10:57)
[2019-08-05] MEDS: GlipiZIDE 5 MG TABLET PO SCH (18:14)
[2019-08-06 07:09] VITALS: BP 128/62
[2019-08-06] MEDS: *HR* Metformin 500 MG TABLET PO SCH ×2 (10:12→16:45)
[2019-08-06] MEDS: Valsartan 80 MG TABLET PO SCH (10:13)
[2019-08-06] MEDS: amLODIPine 5 MG TABLET PO SCH (10:13)
[2019-08-06] MEDS: Lactobacillus 1 EACH CAP.SPRINK PO SCH (10:13)
[2019-08-06] MEDS: Gabapentin 300 MG CAPSULE PO SCH (10:13)
[2019-08-06] MEDS: GlipiZIDE 5 MG TABLET PO SCH ×2 (10:13→16:45)
[2019-08-06] MEDS: Nystatin SUSP 5 ML UD.LIQ BC SCH ×3 (10:14→16:45)
[2019-08-06] MEDS: Psyllium 1 PACKET POWD.PACK PO SCH ×2 (10:15→14:30)
[2019-08-06] MEDS: Fluticasone Propionate Nasal 50 MCG/SPRAY BOTTLE NS SCH (10:21)
[2019-08-06] MEDS: Ibuprofen 400 MG TABLET PO PRN (11:00)
[2019-08-06] MEDS: Budesonide/Formoterol 160/4.5 1 PUFF INH IH SCH (11:05)
[2019-08-06] MEDS: Tiotropium 18 MCG inhalation IH SCH (11:05)
[2019-08-06] MEDS ORDERED: DEXTROSE 25% IVP ONE (14:12)
[2019-08-06] MEDS ORDERED: WATER IVP ONE (14:12)
== END 2019-08-06 19:00 | disposition home health service (06) | DRG 191 ==
LOC: INPPIK 15:35
PROVIDERS: ADMIT Family Medicine; ATTEND Family Medicine

== ENCOUNTER 2020-02-17 07:20 | Inpatient (IN) ==
[2020-02-17] MEDS ORDERED: Ketorolac 60 MG/2 ML VIAL IM ONE (07:47)
[2020-02-17] MEDS ORDERED: methylPREDNISolone 125 MG/2 ML VIAL IM ONE (07:47)
[2020-02-17] MEDS ORDERED: Orphenadrine 60 MG/2 ML VIAL IM ONE (07:47)
[2020-02-17] MEDS ORDERED: Naloxone 0.4 MG/ML INJ IVP PRN (09:13)
[2020-02-17] MEDS ORDERED: Acetaminophen 325 MG TABLET PO PRN (09:19)
[2020-02-17] MEDS ORDERED: MOM Conc 10 ML UD.LIQ PO PRN (09:19)
[2020-02-17 09:24] LABS: Basophils % 0.1 %; Eosinophils # 0.1 K/mcL (0.0-0.6); Eosinophils % 0.9 %; Hematocrit 27.2 % (35.3-44.9); Hemoglobin 8.9 g/dL (11.5-15.4); Immature Granulocytes % 0.6 % (0-4); Lymphocytes # 0.9 K/mcL (0.6-4.6); Lymphocytes % 7.1 %; Mean Corpuscular HGB Conc 32.7 g/dL (31.6-35.5); Mean Corpuscular Hemoglobin 32.7 pg (28.0-33.3); Mean Platelet Volume 9.2 fL (9.4-12.4); Monocytes # 0.7 K/mcL (0.0-1.3); Monocytes % 6.1 %; Neutrophils # 10.4 K/mcL (1.6-8.9); Platelet Count 273 K/mcL (140-400); Red Blood Count 2.72 M/mcL (3.82-4.97); Red Cell Distribution Width 13.1 % (11.5-14.5); Segmented Neutrophils % 85.2 %; White Blood Count 12.2 K/mcL (4.3-11.1)
[2020-02-17] MEDS ORDERED: 0.9 % Sodium Chloride 1,000 ML IVC SCH (09:30)
[2020-02-17 09:35] LABS: Activated Partial Thrombo Time 30.5 Seconds (26.0-36.0)
[2020-02-17] MEDS ORDERED: D5% in Water 1,000 ML IVC PRN (09:37)
[2020-02-17] MEDS ORDERED: Dextrose Gel 15 GM/37.5 ML TUBE PO PRN ×2 (09:37)
[2020-02-17] MEDS ORDERED: *HR* Dextrose 50 % in Water (Vial) 50 ML VIAL IVP PRN (09:37)
[2020-02-17 09:41] LABS: INR 0.9; Prothrombin Time 10.6 Seconds (9.4-12.1)
[2020-02-17 09:43] LABS: BUN/Creatinine Ratio 22 (6-26); Blood Urea Nitrogen 17 mg/dL (8-23); Calcium 9.1 mg/dL (8.6-10.3); Carbon Dioxide 24 mEq/L (23-29); Chloride 106 mEq/L (98-107); Glucose 60 mg/dL (70-105); Osmolality,Calculated 281 (280-300); Potassium 4.5 mEq/L (3.5-5.1); Sodium 136 mEq/L (136-145); eGFR For African Americans > 60 (> 60); eGFR For Non-African Americans > 60 (> 60)
[2020-02-17] MEDS: Insulin LISPRO 300 UNITS/3 ML VIAL SQ SCH ×2 (11:10→17:23)
[2020-02-17 12:35] LABS: Bilirubin,Urine Negative (Negative); Blood,Urine Negative (Negative); Clarity,Urine Cloudy (Clear); Color,Urine Yellow (Yellow); Glucose,Urine (UA) Normal (Normal); Ketones,Urine Negative (Negative); Leukocyte Esterase,Urine Moderate (Negative); Nitrite,Urine Negative (Negative); Protein,Urine Negative (Neg-Trace); Urobilinogen,Urine Normal (Normal)
[2020-02-17 12:42] LABS: Bacteria,Urine Moderate per hpf (None-Few); Mucus,Urine Few per lpf (None-Few)
[2020-02-17] MEDS: Aspirin Enteric Coated 81 MG Tablet PO SCH (14:45)
[2020-02-17] MEDS: Gabapentin 300 MG CAPSULE PO SCH ×3 (14:45→22:20)
[2020-02-17] MEDS: amLODIPine 5 MG TABLET PO SCH (14:45)
[2020-02-17] MEDS: Valsartan 80 MG TABLET PO SCH (14:45)
[2020-02-17] MEDS: *HR* OxyCODONE Immed Rel 5 MG TABLET PO PRN (15:00)
[2020-02-17] MEDS: Ondansetron ODT 4 MG TAB.RAPDIS SL PRN (15:00)
[2020-02-17] MEDS: Budesonide/Formoterol 160/4.5 1 PUFF INH IH SCH ×2 (16:46→22:29)
[2020-02-17] MEDS: *HR* Metformin 500 MG TABLET PO SCH (17:17)
[2020-02-18 06:29] LABS: Hematocrit 24.5 % (35.3-44.9); Hemoglobin 7.9 g/dL (11.5-15.4); Mean Corpuscular HGB Conc 32.2 g/dL (31.6-35.5); Mean Corpuscular Hemoglobin 32.6 pg (28.0-33.3); Mean Corpuscular Volume 101.2 fL (83.0-100.0); Mean Platelet Volume 9.5 fL (9.4-12.4); Platelet Count 247 K/mcL (140-400); Red Blood Count 2.42 M/mcL (3.82-4.97); Red Cell Distribution Width 13.2 % (11.5-14.5); White Blood Count 13.9 K/mcL (4.3-11.1)
[2020-02-18 07:15] LABS: BUN/Creatinine Ratio 25 (6-26); Blood Urea Nitrogen 25 mg/dL (8-23); Calcium 8.1 mg/dL (8.6-10.3); Carbon Dioxide 20 mEq/L (23-29); Chloride 107 mEq/L (98-107); Glucose 274 mg/dL (70-105); Magnesium 1.6 mg/dL (1.6-2.6); Osmolality,Calculated 292 (280-300); Potassium 4.9 mEq/L (3.5-5.1); Sodium 134 mEq/L (136-145); eGFR For African Americans > 60 (> 60); eGFR For Non-African Americans 53 (> 60)
[2020-02-18] MEDS: Valsartan 80 MG TABLET PO SCH (08:05)
[2020-02-18] MEDS: amLODIPine 5 MG TABLET PO SCH (08:05)
[2020-02-18] MEDS: Gabapentin 300 MG CAPSULE PO SCH ×3 (08:05→21:30)
[2020-02-18] MEDS: *HR* Metformin 500 MG TABLET PO SCH ×2 (08:05→16:36)
[2020-02-18] MEDS: Insulin LISPRO 300 UNITS/3 ML VIAL SQ SCH ×3 (08:12→16:36)
[2020-02-18] MEDS: cefTRIAXone 1,000 MG in Water for inj. (sterile) 10 ML IVP SCH (08:25)
[2020-02-18] MEDS: Budesonide/Formoterol 160/4.5 1 PUFF INH IH SCH ×2 (09:27→20:33)
[2020-02-18] MEDS: Tiotropium 18 MCG inhalation IH SCH ×2 (09:28→09:32)
[2020-02-18 12:06] LABS: Estimated Average Glucose 171 mg/dl
[2020-02-18] MEDS: *HR* OxyCODONE Immed Rel 5 MG TABLET PO PRN (21:30)
[2020-02-18] MEDS: Ondansetron ODT 4 MG TAB.RAPDIS SL PRN (22:21)
[2020-02-19 06:44] LABS: Hematocrit 24.4 % (35.3-44.9); Hemoglobin 7.8 g/dL (11.5-15.4); Mean Corpuscular Hemoglobin 32.5 pg (28.0-33.3); Mean Corpuscular Volume 101.7 fL (83.0-100.0); Mean Platelet Volume 9.4 fL (9.4-12.4); Platelet Count 248 K/mcL (140-400); Red Cell Distribution Width 13.4 % (11.5-14.5); White Blood Count 8.7 K/mcL (4.3-11.1)
[2020-02-19 07:04] LABS: BUN/Creatinine Ratio 25 (6-26); Blood Urea Nitrogen 22 mg/dL (8-23); Calcium 8.3 mg/dL (8.6-10.3); Carbon Dioxide 22 mEq/L (23-29); Chloride 107 mEq/L (98-107); Glucose 262 mg/dL (70-105); Osmolality,Calculated 294 (280-300); Potassium 4.9 mEq/L (3.5-5.1); Sodium 136 mEq/L (136-145); eGFR For African Americans > 60 (> 60); eGFR For Non-African Americans > 60 (> 60)
[2020-02-19] MEDS: Insulin LISPRO 300 UNITS/3 ML VIAL SQ SCH ×3 (07:40→15:56)
[2020-02-19] MEDS: *HR* Metformin 500 MG TABLET PO SCH ×2 (07:41→15:56)
[2020-02-19] MEDS: Valsartan 80 MG TABLET PO SCH (07:41)
[2020-02-19] MEDS: Gabapentin 300 MG CAPSULE PO SCH ×3 (07:41→20:06)
[2020-02-19] MEDS: cefTRIAXone 1,000 MG in Water for inj. (sterile) 10 ML IVP SCH (07:41)
[2020-02-19] MEDS: amLODIPine 5 MG TABLET PO SCH (07:41)
[2020-02-19] MEDS: Budesonide/Formoterol 160/4.5 1 PUFF INH IH SCH ×2 (09:03→21:45)
[2020-02-19] MEDS: Tiotropium 18 MCG inhalation IH SCH (09:04)
[2020-02-19] MEDS: Aspirin Enteric Coated 81 MG Tablet PO SCH (09:58)
[2020-02-19] MEDS: Cyanocobalamin (B-12) 1,000 MCG TABLET PO SCH (09:58)
[2020-02-19] MEDS: *HR* OxyCODONE Immed Rel 5 MG TABLET PO PRN (10:55)
[2020-02-20] MEDS: *HR* OxyCODONE Immed Rel 5 MG TABLET PO PRN ×2 (03:54→22:51)
[2020-02-20 07:22] LABS: Basophils % 0.3 %; Eosinophils # 0.2 K/mcL (0.0-0.6); Eosinophils % 2.5 %; Hematocrit 25.5 % (35.3-44.9); Hemoglobin 8.1 g/dL (11.5-15.4); Immature Granulocytes % 0.6 % (0-4); Lymphocytes # 1.6 K/mcL (0.6-4.6); Lymphocytes % 22.7 %; Mean Corpuscular HGB Conc 31.8 g/dL (31.6-35.5); Mean Corpuscular Hemoglobin 32.1 pg (28.0-33.3); Mean Corpuscular Volume 101.2 fL (83.0-100.0); Mean Platelet Volume 9.2 fL (9.4-12.4); Monocytes # 0.6 K/mcL (0.0-1.3); Monocytes % 8.2 %; Neutrophils # 4.7 K/mcL (1.6-8.9); Platelet Count 243 K/mcL (140-400); Red Blood Count 2.52 M/mcL (3.82-4.97); Red Cell Distribution Width 13.2 % (11.5-14.5); Segmented Neutrophils % 65.7 %; White Blood Count 7.2 K/mcL (4.3-11.1)
[2020-02-20 07:42] LABS: BUN/Creatinine Ratio 22 (6-26); Blood Urea Nitrogen 16 mg/dL (8-23); Calcium 8.8 mg/dL (8.6-10.3); Carbon Dioxide 24 mEq/L (23-29); Chloride 104 mEq/L (98-107); Glucose 202 mg/dL (70-105); Osmolality,Calculated 283 (280-300); Potassium 5.1 mEq/L (3.5-5.1); Sodium 133 mEq/L (136-145); eGFR For African Americans > 60 (> 60); eGFR For Non-African Americans > 60 (> 60)
[2020-02-20] MEDS: Insulin LISPRO 300 UNITS/3 ML VIAL SQ SCH ×3 (08:09→16:22)
[2020-02-20] MEDS: Gabapentin 300 MG CAPSULE PO SCH ×3 (08:10→19:49)
[2020-02-20] MEDS: Valsartan 80 MG TABLET PO SCH (08:10)
[2020-02-20] MEDS: cefTRIAXone 1,000 MG in Water for inj. (sterile) 10 ML IVP SCH (08:10)
[2020-02-20] MEDS: *HR* Metformin 500 MG TABLET PO SCH ×2 (08:11→16:22)
[2020-02-20] MEDS: amLODIPine 5 MG TABLET PO SCH (08:11)
[2020-02-20] MEDS: Cyanocobalamin (B-12) 1,000 MCG TABLET PO SCH (08:11)
[2020-02-20] MEDS: Budesonide/Formoterol 160/4.5 1 PUFF INH IH SCH ×2 (08:56→21:11)
[2020-02-20] MEDS: Tiotropium 18 MCG inhalation IH SCH (08:59)
[2020-02-20] MEDS: cephALEXin 500 MG CAPSULE PO SCH (19:49)
[2020-02-20] MEDS: Ondansetron ODT 4 MG TAB.RAPDIS SL PRN (22:10)
[2020-02-21 05:49] LABS: Basophils % 0.4 %; Eosinophils # 0.2 K/mcL (0.0-0.6); Eosinophils % 3.9 %; Hematocrit 25.6 % (35.3-44.9); Hemoglobin 8.1 g/dL (11.5-15.4); Immature Granulocytes % 0.9 % (0-4); Lymphocytes # 1.4 K/mcL (0.6-4.6); Lymphocytes % 24.7 %; Mean Corpuscular HGB Conc 31.6 g/dL (31.6-35.5); Mean Corpuscular Hemoglobin 31.9 pg (28.0-33.3); Mean Corpuscular Volume 100.8 fL (83.0-100.0); Mean Platelet Volume 8.8 fL (9.4-12.4); Monocytes # 0.5 K/mcL (0.0-1.3); Monocytes % 8.4 %; Neutrophils # 3.5 K/mcL (1.6-8.9); Platelet Count 233 K/mcL (140-400); Red Blood Count 2.54 M/mcL (3.82-4.97); Segmented Neutrophils % 61.7 %; White Blood Count 5.7 K/mcL (4.3-11.1)
[2020-02-21 06:19] LABS: BUN/Creatinine Ratio 18 (6-26); Blood Urea Nitrogen 12 mg/dL (8-23); Calcium 8.7 mg/dL (8.6-10.3); Carbon Dioxide 29 mEq/L (23-29); Chloride 102 mEq/L (98-107); Glucose 146 mg/dL (70-105); Osmolality,Calculated 282 (280-300); Potassium 5.3 mEq/L (3.5-5.1); Sodium 135 mEq/L (136-145); eGFR For African Americans > 60 (> 60); eGFR For Non-African Americans > 60 (> 60)
[2020-02-21 06:38] VITALS: BP 117/59
[2020-02-21] MEDS: Gabapentin 300 MG CAPSULE PO SCH (07:59)
[2020-02-21] MEDS: Cyanocobalamin (B-12) 1,000 MCG TABLET PO SCH (07:59)
[2020-02-21] MEDS: amLODIPine 5 MG TABLET PO SCH (07:59)
[2020-02-21] MEDS: *HR* Metformin 500 MG TABLET PO SCH (07:59)
[2020-02-21] MEDS: Insulin LISPRO 300 UNITS/3 ML VIAL SQ SCH (07:59)
[2020-02-21] MEDS: cephALEXin 500 MG CAPSULE PO SCH (07:59)
[2020-02-21] MEDS: *HR* OxyCODONE Immed Rel 5 MG TABLET PO PRN (08:04)
[2020-02-21 08:48] LABS: % Iron Saturation 17 % (15-50); Iron 45 mcg/dL (50-170); Transferrin 184 mg/dL (203-362)
== END 2020-02-21 09:05 | disposition other institution (70) | DRG 552 ==
LOC: EMEROOPIK 07:20 → INPPIK 07:20
PROVIDERS: ADMIT Family Medicine; ATTEND Family Medicine

== ENCOUNTER 2020-02-20 13:51 | Inpatient (IN) ==
[2020-02-21] MEDS ORDERED: Nitroglycerin 0.4 MG TAB.SUBL SL PRN ×2 (08:51→11:45)
[2020-02-21] MEDS ORDERED: GlipiZIDE 5 MG TABLET PO SCH (09:00)
[2020-02-21] MEDS ORDERED: Tiotropium 18 MCG inhalation IH SCH (10:00)
[2020-02-21] MEDS: Aspirin Enteric Coated 81 MG Tablet PO SCH (10:19)
[2020-02-21] MEDS: Valsartan 80 MG TABLET PO SCH (10:19)
[2020-02-21] MEDS: Cyanocobalamin (B-12) 1,000 MCG TABLET PO SCH (10:19)
[2020-02-21] MEDS: Budesonide/Formoterol 160/4.5 1 PUFF INH IH SCH ×3 (12:46→21:03)
[2020-02-21] MEDS: Tiotropium 18 MCG inhalation IH SCH (12:47)
[2020-02-21] MEDS: Insulin LISPRO 300 UNITS/3 ML VIAL SQ SCH ×3 (12:52→20:32)
[2020-02-21] MEDS: *HR* Metformin 500 MG TABLET PO SCH (16:28)
[2020-02-21] MEDS: Gabapentin 300 MG CAPSULE PO SCH ×2 (16:28→20:31)
[2020-02-21] MEDS: *HR* OxyCODONE Immed Rel 15 MG TABLET PO PRN (20:31)
[2020-02-21] MEDS: cephALEXin 500 MG CAPSULE PO SCH (20:31)
[2020-02-21] MEDS: Ondansetron ODT 4 MG TAB.RAPDIS PO PRN (23:53)
[2020-02-22 06:09] LABS: Basophils % 0.2 %; Eosinophils # 0.2 K/mcL (0.0-0.6); Eosinophils % 3.7 %; Hematocrit 23.6 % (35.3-44.9); Hemoglobin 7.5 g/dL (11.5-15.4); Immature Granulocytes % 0.5 % (0-4); Lymphocytes # 1.5 K/mcL (0.6-4.6); Lymphocytes % 25.3 %; Mean Corpuscular HGB Conc 31.8 g/dL (31.6-35.5); Mean Corpuscular Hemoglobin 31.9 pg (28.0-33.3); Mean Corpuscular Volume 100.4 fL (83.0-100.0); Mean Platelet Volume 8.9 fL (9.4-12.4); Monocytes # 0.5 K/mcL (0.0-1.3); Neutrophils # 3.7 K/mcL (1.6-8.9); Platelet Count 214 K/mcL (140-400); Red Blood Count 2.35 M/mcL (3.82-4.97); Red Cell Distribution Width 13.2 % (11.5-14.5); Segmented Neutrophils % 61.3 %
[2020-02-22 06:30] LABS: BUN/Creatinine Ratio 19 (6-26); Blood Urea Nitrogen 15 mg/dL (8-23); Calcium 8.5 mg/dL (8.6-10.3); Carbon Dioxide 29 mEq/L (23-29); Chloride 98 mEq/L (98-107); Glucose 175 mg/dL (70-105); Osmolality,Calculated 277 (280-300); Potassium 5.1 mEq/L (3.5-5.1); Sodium 131 mEq/L (136-145); eGFR For African Americans > 60 (> 60); eGFR For Non-African Americans > 60 (> 60)
[2020-02-22] MEDS: Budesonide/Formoterol 160/4.5 1 PUFF INH IH SCH ×2 (07:57→20:59)
[2020-02-22] MEDS: Valsartan 80 MG TABLET PO SCH (08:07)
[2020-02-22] MEDS: amLODIPine 5 MG TABLET PO SCH (08:07)
[2020-02-22] MEDS: *HR* Metformin 500 MG TABLET PO SCH ×2 (08:07→16:29)
[2020-02-22] MEDS: Gabapentin 300 MG CAPSULE PO SCH ×3 (08:07→21:40)
[2020-02-22] MEDS: Cyanocobalamin (B-12) 1,000 MCG TABLET PO SCH (08:07)
[2020-02-22] MEDS: Insulin LISPRO 300 UNITS/3 ML VIAL SQ SCH ×4 (08:08→21:44)
[2020-02-22] MEDS: cephALEXin 500 MG CAPSULE PO SCH ×2 (08:08→21:41)
[2020-02-22] MEDS: GlipiZIDE 5 MG TABLET PO SCH (08:08)
[2020-02-22] MEDS: Tiotropium 18 MCG inhalation IH SCH (09:33)
[2020-02-22] MEDS: *HR* OxyCODONE Immed Rel 15 MG TABLET PO PRN ×2 (11:26→21:43)
[2020-02-22] MEDS: Ondansetron ODT 4 MG TAB.RAPDIS PO PRN (17:50)
[2020-02-23] MEDS: Budesonide/Formoterol 160/4.5 1 PUFF INH IH SCH ×2 (07:17→22:14)
[2020-02-23] MEDS: Tiotropium 18 MCG inhalation IH SCH (07:17)
[2020-02-23] MEDS: Cyanocobalamin (B-12) 1,000 MCG TABLET PO SCH (09:52)
[2020-02-23] MEDS: amLODIPine 5 MG TABLET PO SCH (09:53)
[2020-02-23] MEDS: Gabapentin 300 MG CAPSULE PO SCH ×3 (09:53→20:33)
[2020-02-23] MEDS: cephALEXin 500 MG CAPSULE PO SCH ×2 (09:54→20:33)
[2020-02-23] MEDS: Aspirin Enteric Coated 81 MG Tablet PO SCH (09:55)
[2020-02-23] MEDS: *HR* Metformin 500 MG TABLET PO SCH ×2 (09:56→17:03)
[2020-02-23] MEDS: Valsartan 80 MG TABLET PO SCH (09:59)
[2020-02-23] MEDS: GlipiZIDE 5 MG TABLET PO SCH (10:28)
[2020-02-23] MEDS: Insulin LISPRO 300 UNITS/3 ML VIAL SQ SCH ×4 (10:40→20:33)
[2020-02-23] MEDS: *HR* OxyCODONE Immed Rel 15 MG TABLET PO PRN (17:03)
[2020-02-24] MEDS: Budesonide/Formoterol 160/4.5 1 PUFF INH IH SCH ×2 (08:28→23:02)
[2020-02-24] MEDS: Tiotropium 18 MCG inhalation IH SCH (08:29)
[2020-02-24] MEDS: amLODIPine 5 MG TABLET PO SCH (08:46)
[2020-02-24] MEDS: Cyanocobalamin (B-12) 1,000 MCG TABLET PO SCH (08:46)
[2020-02-24] MEDS: cephALEXin 500 MG CAPSULE PO SCH ×2 (08:46→20:49)
[2020-02-24] MEDS: Gabapentin 300 MG CAPSULE PO SCH ×3 (08:46→20:49)
[2020-02-24] MEDS: Valsartan 80 MG TABLET PO SCH (08:46)
[2020-02-24] MEDS: *HR* Metformin 500 MG TABLET PO SCH ×2 (08:46→15:13)
[2020-02-24] MEDS: GlipiZIDE 5 MG TABLET PO SCH (08:46)
[2020-02-24] MEDS: Insulin LISPRO 300 UNITS/3 ML VIAL SQ SCH ×3 (08:47→16:49)
[2020-02-24] MEDS ORDERED: Dextrose Gel 15 GM/37.5 ML TUBE PO PRN ×2 (16:40)
[2020-02-24] MEDS ORDERED: D5% in Water 1,000 ML IVC PRN (16:40)
[2020-02-24] MEDS ORDERED: *HR* Dextrose 50 % in Water (Vial) 50 ML VIAL IVP PRN (16:40)
[2020-02-24] MEDS: Ondansetron ODT 4 MG TAB.RAPDIS PO PRN (18:31)
[2020-02-24] MEDS: *HR* OxyCODONE Immed Rel 15 MG TABLET PO PRN (20:56)
[2020-02-25] MEDS: Gabapentin 300 MG CAPSULE PO SCH ×3 (07:38→20:43)
[2020-02-25] MEDS: *HR* Metformin 500 MG TABLET PO SCH ×2 (07:39→16:40)
[2020-02-25] MEDS: GlipiZIDE 5 MG TABLET PO SCH (07:39)
[2020-02-25] MEDS: Aspirin Enteric Coated 81 MG Tablet PO SCH (07:39)
[2020-02-25] MEDS: Cyanocobalamin (B-12) 1,000 MCG TABLET PO SCH (07:40)
[2020-02-25] MEDS: amLODIPine 5 MG TABLET PO SCH (07:45)
[2020-02-25] MEDS: Valsartan 80 MG TABLET PO SCH (07:45)
[2020-02-25] MEDS: Budesonide/Formoterol 160/4.5 1 PUFF INH IH SCH ×2 (10:30→21:01)
[2020-02-25] MEDS: Tiotropium 18 MCG inhalation IH SCH (10:41)
[2020-02-25 11:21] LABS: Basophils % 0.5 %; Eosinophils # 0.3 K/mcL (0.0-0.6); Eosinophils % 5.4 %; Hematocrit 24.3 % (35.3-44.9); Hemoglobin 7.7 g/dL (11.5-15.4); Immature Granulocytes % 0.7 % (0-4); Lymphocytes # 1.4 K/mcL (0.6-4.6); Lymphocytes % 22.8 %; Mean Corpuscular HGB Conc 31.7 g/dL (31.6-35.5); Mean Corpuscular Hemoglobin 32.2 pg (28.0-33.3); Mean Corpuscular Volume 101.7 fL (83.0-100.0); Mean Platelet Volume 9.6 fL (9.4-12.4); Monocytes # 0.4 K/mcL (0.0-1.3); Monocytes % 6.5 %; Neutrophils # 3.9 K/mcL (1.6-8.9); Platelet Count 242 K/mcL (140-400); Red Blood Count 2.39 M/mcL (3.82-4.97); Red Cell Distribution Width 12.8 % (11.5-14.5); Segmented Neutrophils % 64.1 %; White Blood Count 6.1 K/mcL (4.3-11.1)
[2020-02-25 11:38] LABS: BUN/Creatinine Ratio 20 (6-26); Blood Urea Nitrogen 17 mg/dL (8-23); Calcium 8.7 mg/dL (8.6-10.3); Carbon Dioxide 32 mEq/L (23-29); Chloride 100 mEq/L (98-107); Glucose 124 mg/dL (70-105); Osmolality,Calculated 285 (280-300); Potassium 5.3 mEq/L (3.5-5.1); Sodium 136 mEq/L (136-145); eGFR For African Americans > 60 (> 60); eGFR For Non-African Americans > 60 (> 60)
[2020-02-25] MEDS: *HR* OxyCODONE Immed Rel 15 MG TABLET PO PRN ×2 (11:53→20:43)
[2020-02-25] MEDS ORDERED: 0.9 % Sodium Chloride 1,000 ML IVC SCH (13:00)
[2020-02-26 07:05] LABS: Basophils % 0.4 %; Eosinophils # 0.4 K/mcL (0.0-0.6); Eosinophils % 6.3 %; Hematocrit 23.5 % (35.3-44.9); Hemoglobin 7.6 g/dL (11.5-15.4); Immature Granulocytes % 0.4 % (0-4); Lymphocytes # 1.3 K/mcL (0.6-4.6); Lymphocytes % 23.7 %; Mean Corpuscular HGB Conc 32.3 g/dL (31.6-35.5); Mean Corpuscular Hemoglobin 32.8 pg (28.0-33.3); Mean Corpuscular Volume 101.3 fL (83.0-100.0); Mean Platelet Volume 9.6 fL (9.4-12.4); Monocytes # 0.4 K/mcL (0.0-1.3); Neutrophils # 3.4 K/mcL (1.6-8.9); Platelet Count 244 K/mcL (140-400); Red Blood Count 2.32 M/mcL (3.82-4.97); Red Cell Distribution Width 12.9 % (11.5-14.5); Segmented Neutrophils % 61.2 %; White Blood Count 5.5 K/mcL (4.3-11.1)
[2020-02-26 07:38] LABS: BUN/Creatinine Ratio 18 (6-26); Blood Urea Nitrogen 13 mg/dL (8-23); Calcium 8.3 mg/dL (8.6-10.3); Carbon Dioxide 29 mEq/L (23-29); Chloride 101 mEq/L (98-107); Glucose 169 mg/dL (70-105); Osmolality,Calculated 286 (280-300); Potassium 4.6 mEq/L (3.5-5.1); Sodium 136 mEq/L (136-145); eGFR For African Americans > 60 (> 60); eGFR For Non-African Americans > 60 (> 60)
[2020-02-26] MEDS: *HR* OxyCODONE Immed Rel 15 MG TABLET PO PRN ×2 (08:25→20:35)
[2020-02-26] MEDS: GlipiZIDE 5 MG TABLET PO SCH (08:25)
[2020-02-26] MEDS: Cyanocobalamin (B-12) 1,000 MCG TABLET PO SCH (08:25)
[2020-02-26] MEDS: Valsartan 80 MG TABLET PO SCH (08:25)
[2020-02-26] MEDS: *HR* Metformin 500 MG TABLET PO SCH ×2 (08:25→17:07)
[2020-02-26] MEDS: Gabapentin 300 MG CAPSULE PO SCH ×3 (08:26→20:26)
[2020-02-26 09:32] LABS: % Iron Saturation 17 % (15-50); Iron 42 mcg/dL (50-170); Transferrin 179 mg/dL (203-362)
[2020-02-26 09:44] LABS: Folate 18.8 ng/mL (3.0-16.0)
[2020-02-26] MEDS: Budesonide/Formoterol 160/4.5 1 PUFF INH IH SCH ×2 (13:20→21:05)
[2020-02-26] MEDS: Tiotropium 18 MCG inhalation IH SCH (13:21)
[2020-02-27] MEDS: *HR* Metformin 500 MG TABLET PO SCH ×2 (08:49→17:38)
[2020-02-27] MEDS: Aspirin Enteric Coated 81 MG Tablet PO SCH (08:49)
[2020-02-27] MEDS: Sennosides/Docusate Sodium TABLET PO SCH ×2 (08:49→20:37)
[2020-02-27] MEDS: Gabapentin 300 MG CAPSULE PO SCH ×3 (08:49→20:37)
[2020-02-27] MEDS: GlipiZIDE 5 MG TABLET PO SCH (08:49)
[2020-02-27] MEDS: Cyanocobalamin (B-12) 1,000 MCG TABLET PO SCH (08:50)
[2020-02-27] MEDS: Valsartan 80 MG TABLET PO SCH (08:50)
[2020-02-27] MEDS: Tiotropium 18 MCG inhalation IH SCH (10:48)
[2020-02-27] MEDS: Budesonide/Formoterol 160/4.5 1 PUFF INH IH SCH ×2 (10:50→22:27)
[2020-02-27] MEDS: *HR* OxyCODONE Immed Rel 15 MG TABLET PO PRN ×2 (12:38→23:48)
[2020-02-28] MEDS: Valsartan 80 MG TABLET PO SCH (08:34)
[2020-02-28] MEDS: Cyanocobalamin (B-12) 1,000 MCG TABLET PO SCH (08:34)
[2020-02-28] MEDS: Sennosides/Docusate Sodium TABLET PO SCH ×2 (08:34→20:02)
[2020-02-28] MEDS: GlipiZIDE 5 MG TABLET PO SCH (08:34)
[2020-02-28] MEDS: Gabapentin 300 MG CAPSULE PO SCH ×3 (08:34→20:02)
[2020-02-28] MEDS: *HR* Metformin 500 MG TABLET PO SCH ×2 (08:34→15:14)
[2020-02-28] MEDS: Tiotropium 18 MCG inhalation IH SCH (10:36)
[2020-02-28] MEDS: Budesonide/Formoterol 160/4.5 1 PUFF INH IH SCH ×2 (10:36→21:48)
[2020-02-28] MEDS: *HR* OxyCODONE Immed Rel 15 MG TABLET PO PRN ×2 (15:14→22:51)
[2020-02-29 08:02] LABS: Hematocrit 27.6 % (35.3-44.9); Hemoglobin 8.9 g/dL (11.5-15.4); Mean Corpuscular HGB Conc 32.2 g/dL (31.6-35.5); Mean Corpuscular Hemoglobin 32.4 pg (28.0-33.3); Mean Corpuscular Volume 100.4 fL (83.0-100.0); Mean Platelet Volume 9.3 fL (9.4-12.4); Platelet Count 336 K/mcL (140-400); Red Blood Count 2.75 M/mcL (3.82-4.97); Red Cell Distribution Width 12.9 % (11.5-14.5); White Blood Count 5.7 K/mcL (4.3-11.1)
[2020-02-29] MEDS: Gabapentin 300 MG CAPSULE PO SCH ×3 (08:17→20:07)
[2020-02-29] MEDS: Cyanocobalamin (B-12) 1,000 MCG TABLET PO SCH (08:18)
[2020-02-29] MEDS: Aspirin Enteric Coated 81 MG Tablet PO SCH (08:18)
[2020-02-29] MEDS: *HR* Metformin 500 MG TABLET PO SCH ×2 (08:18→15:23)
[2020-02-29] MEDS: Valsartan 80 MG TABLET PO SCH (08:18)
[2020-02-29] MEDS: Sennosides/Docusate Sodium TABLET PO SCH ×2 (08:18→20:08)
[2020-02-29] MEDS: GlipiZIDE 5 MG TABLET PO SCH (08:18)
[2020-02-29 08:32] LABS: BUN/Creatinine Ratio 17 (6-26); Blood Urea Nitrogen 13 mg/dL (8-23); Carbon Dioxide 32 mEq/L (23-29); Chloride 97 mEq/L (98-107); Glucose 144 mg/dL (70-105); Osmolality,Calculated 285 (280-300); Potassium 4.4 mEq/L (3.5-5.1); Sodium 136 mEq/L (136-145); eGFR For African Americans > 60 (> 60); eGFR For Non-African Americans > 60 (> 60)
[2020-02-29] MEDS: Tiotropium 18 MCG inhalation IH SCH (09:08)
[2020-02-29] MEDS: Budesonide/Formoterol 160/4.5 1 PUFF INH IH SCH ×2 (09:10→21:50)
[2020-02-29] MEDS: *HR* OxyCODONE Immed Rel 15 MG TABLET PO PRN ×2 (09:26→17:07)
[2020-03-01] MEDS: GlipiZIDE 5 MG TABLET PO SCH (08:23)
[2020-03-01] MEDS: Gabapentin 300 MG CAPSULE PO SCH ×3 (08:23→20:04)
[2020-03-01] MEDS: Cyanocobalamin (B-12) 1,000 MCG TABLET PO SCH (08:23)
[2020-03-01] MEDS: *HR* Metformin 500 MG TABLET PO SCH ×2 (08:23→16:21)
[2020-03-01] MEDS: Valsartan 80 MG TABLET PO SCH (08:23)
[2020-03-01] MEDS: Sennosides/Docusate Sodium TABLET PO SCH ×2 (08:23→20:14)
[2020-03-01] MEDS: Budesonide/Formoterol 160/4.5 1 PUFF INH IH SCH ×2 (11:05→21:49)
[2020-03-01] MEDS: Tiotropium 18 MCG inhalation IH SCH (11:06)
[2020-03-01] MEDS: *HR* OxyCODONE Immed Rel 15 MG TABLET PO PRN ×2 (12:44→21:41)
[2020-03-01] MEDS: Ondansetron ODT 4 MG TAB.RAPDIS PO PRN (19:48)
[2020-03-02] MEDS: *HR* OxyCODONE Immed Rel 15 MG TABLET PO PRN ×2 (08:16→17:10)
[2020-03-02] MEDS: Gabapentin 300 MG CAPSULE PO SCH ×3 (08:16→20:24)
[2020-03-02] MEDS: GlipiZIDE 5 MG TABLET PO SCH (08:17)
[2020-03-02] MEDS: Sennosides/Docusate Sodium TABLET PO SCH ×2 (08:17→20:23)
[2020-03-02] MEDS: Cyanocobalamin (B-12) 1,000 MCG TABLET PO SCH (08:17)
[2020-03-02] MEDS: Aspirin Enteric Coated 81 MG Tablet PO SCH (08:17)
[2020-03-02] MEDS: *HR* Metformin 500 MG TABLET PO SCH ×2 (08:17→15:42)
[2020-03-02] MEDS: Valsartan 80 MG TABLET PO SCH (08:17)
[2020-03-02] MEDS: Budesonide/Formoterol 160/4.5 1 PUFF INH IH SCH ×2 (10:09→20:29)
[2020-03-02] MEDS: Tiotropium 18 MCG inhalation IH SCH (10:10)
[2020-03-02] MEDS ORDERED: FLU Vac QV HD 20-21 (65YR+)/PF 0.7 ML SYRINGE IM ONE (15:20)
[2020-03-02] MEDS ORDERED: FLU Vac QV 20-21 (6Month+)/PF 0.5 ML SYRINGE IM ONE (15:30)
[2020-03-03] MEDS: Sennosides/Docusate Sodium TABLET PO SCH ×2 (08:50→21:00)
[2020-03-03] MEDS: Cyanocobalamin (B-12) 1,000 MCG TABLET PO SCH (08:50)
[2020-03-03] MEDS: GlipiZIDE 5 MG TABLET PO SCH (08:50)
[2020-03-03] MEDS: *HR* Metformin 500 MG TABLET PO SCH ×2 (08:50→17:21)
[2020-03-03] MEDS: Gabapentin 300 MG CAPSULE PO SCH ×3 (08:50→20:58)
[2020-03-03] MEDS: Valsartan 80 MG TABLET PO SCH (08:51)
[2020-03-03] MEDS: *HR* OxyCODONE Immed Rel 15 MG TABLET PO PRN ×2 (09:00→20:58)
[2020-03-03] MEDS: Budesonide/Formoterol 160/4.5 1 PUFF INH IH SCH ×2 (09:36→20:36)
[2020-03-03] MEDS: Tiotropium 18 MCG inhalation IH SCH (09:39)
[2020-03-04] MEDS: Gabapentin 300 MG CAPSULE PO SCH ×3 (08:50→21:08)
[2020-03-04] MEDS: *HR* Metformin 500 MG TABLET PO SCH ×2 (08:50→17:36)
[2020-03-04] MEDS: Aspirin Enteric Coated 81 MG Tablet PO SCH (08:50)
[2020-03-04] MEDS: GlipiZIDE 5 MG TABLET PO SCH (08:50)
[2020-03-04] MEDS: Sennosides/Docusate Sodium TABLET PO SCH ×2 (08:50→21:09)
[2020-03-04] MEDS: Cyanocobalamin (B-12) 1,000 MCG TABLET PO SCH (08:51)
[2020-03-04] MEDS: Valsartan 80 MG TABLET PO SCH (08:51)
[2020-03-04] MEDS: Budesonide/Formoterol 160/4.5 1 PUFF INH IH SCH ×2 (09:06→20:54)
[2020-03-04] MEDS: Tiotropium 18 MCG inhalation IH SCH (09:06)
[2020-03-04] MEDS: *HR* OxyCODONE Immed Rel 15 MG TABLET PO PRN ×2 (13:04→21:15)
[2020-03-04] MEDS: polyethylene glycoL 3350 17 GM POWD.PACK PO SCH (15:18)
[2020-03-05] MEDS: *HR* Metformin 500 MG TABLET PO SCH ×2 (08:19→16:30)
[2020-03-05] MEDS: GlipiZIDE 5 MG TABLET PO SCH (08:19)
[2020-03-05] MEDS: Valsartan 80 MG TABLET PO SCH (08:20)
[2020-03-05] MEDS: Gabapentin 300 MG CAPSULE PO SCH ×3 (08:20→21:03)
[2020-03-05] MEDS: Cyanocobalamin (B-12) 1,000 MCG TABLET PO SCH (08:21)
[2020-03-05] MEDS: polyethylene glycoL 3350 17 GM POWD.PACK PO SCH (08:21)
[2020-03-05] MEDS: Sennosides/Docusate Sodium TABLET PO SCH ×2 (08:21→21:03)
[2020-03-05 08:37] LABS: Basophils % 0.4 %; Eosinophils # 0.4 K/mcL (0.0-0.6); Eosinophils % 8.6 %; Hematocrit 26.8 % (35.3-44.9); Hemoglobin 8.4 g/dL (11.5-15.4); Immature Granulocytes % 0.4 % (0-4); Lymphocytes # 1.4 K/mcL (0.6-4.6); Lymphocytes % 28.7 %; Mean Corpuscular HGB Conc 31.3 g/dL (31.6-35.5); Mean Corpuscular Hemoglobin 31.8 pg (28.0-33.3); Mean Corpuscular Volume 101.5 fL (83.0-100.0); Mean Platelet Volume 10.1 fL (9.4-12.4); Monocytes # 0.5 K/mcL (0.0-1.3); Monocytes % 10.2 %; Neutrophils # 2.6 K/mcL (1.6-8.9); Platelet Count 350 K/mcL (140-400); Red Blood Count 2.64 M/mcL (3.82-4.97); Red Cell Distribution Width 12.5 % (11.5-14.5); Segmented Neutrophils % 51.7 %
[2020-03-05 09:15] LABS: BUN/Creatinine Ratio 13 (6-26); Blood Urea Nitrogen 9 mg/dL (8-23); Calcium 8.9 mg/dL (8.6-10.3); Carbon Dioxide 27 mEq/L (23-29); Chloride 101 mEq/L (98-107); Glucose 159 mg/dL (70-105); Osmolality,Calculated 282 (280-300); Potassium 4.6 mEq/L (3.5-5.1); Sodium 135 mEq/L (136-145); eGFR For African Americans > 60 (> 60); eGFR For Non-African Americans > 60 (> 60)
[2020-03-05] MEDS: Budesonide/Formoterol 160/4.5 1 PUFF INH IH SCH ×2 (10:58→20:14)
[2020-03-05] MEDS: Tiotropium 18 MCG inhalation IH SCH (11:13)
[2020-03-05] MEDS: *HR* OxyCODONE Immed Rel 15 MG TABLET PO PRN ×2 (13:10→21:02)
[2020-03-06] MEDS: Gabapentin 300 MG CAPSULE PO SCH ×3 (07:50→21:45)
[2020-03-06] MEDS: *HR* Metformin 500 MG TABLET PO SCH ×2 (07:50→16:11)
[2020-03-06] MEDS: GlipiZIDE 5 MG TABLET PO SCH (07:50)
[2020-03-06] MEDS: Aspirin Enteric Coated 81 MG Tablet PO SCH (07:51)
[2020-03-06] MEDS: Sennosides/Docusate Sodium TABLET PO SCH ×2 (07:51→22:14)
[2020-03-06] MEDS: Valsartan 80 MG TABLET PO SCH (07:51)
[2020-03-06] MEDS: polyethylene glycoL 3350 17 GM POWD.PACK PO SCH (07:51)
[2020-03-06] MEDS: Tiotropium 18 MCG inhalation IH SCH (10:01)
[2020-03-06] MEDS: Budesonide/Formoterol 160/4.5 1 PUFF INH IH SCH ×2 (10:02→21:53)
[2020-03-06] MEDS: *HR* OxyCODONE Immed Rel 15 MG TABLET PO PRN ×2 (12:40→21:45)
[2020-03-07] MEDS: *HR* Metformin 500 MG TABLET PO SCH ×2 (10:06→15:23)
[2020-03-07] MEDS: Sennosides/Docusate Sodium TABLET PO SCH ×2 (10:06→20:53)
[2020-03-07] MEDS: Gabapentin 300 MG CAPSULE PO SCH ×3 (10:07→20:52)
[2020-03-07] MEDS: GlipiZIDE 5 MG TABLET PO SCH (10:07)
[2020-03-07] MEDS: Valsartan 80 MG TABLET PO SCH (10:07)
[2020-03-07] MEDS: *HR* OxyCODONE Immed Rel 15 MG TABLET PO PRN ×2 (10:07→20:53)
[2020-03-07] MEDS: polyethylene glycoL 3350 17 GM POWD.PACK PO SCH (10:08)
[2020-03-07] MEDS: Budesonide/Formoterol 160/4.5 1 PUFF INH IH SCH ×2 (10:41→20:52)
[2020-03-07] MEDS: Tiotropium 18 MCG inhalation IH SCH (10:43)
[2020-03-08] MEDS: Budesonide/Formoterol 160/4.5 1 PUFF INH IH SCH ×2 (07:24→21:07)
[2020-03-08] MEDS: Tiotropium 18 MCG inhalation IH SCH (07:24)
[2020-03-08] MEDS: *HR* Metformin 500 MG TABLET PO SCH ×2 (08:19→16:03)
[2020-03-08] MEDS: Valsartan 80 MG TABLET PO SCH (08:20)
[2020-03-08] MEDS: GlipiZIDE 5 MG TABLET PO SCH (08:20)
[2020-03-08] MEDS: polyethylene glycoL 3350 17 GM POWD.PACK PO SCH (08:20)
[2020-03-08] MEDS: Sennosides/Docusate Sodium TABLET PO SCH ×2 (08:20→21:45)
[2020-03-08] MEDS: Gabapentin 300 MG CAPSULE PO SCH ×3 (08:20→20:39)
[2020-03-08] MEDS: Aspirin Enteric Coated 81 MG Tablet PO SCH (08:20)
[2020-03-08] MEDS: *HR* OxyCODONE Immed Rel 15 MG TABLET PO PRN ×3 (08:22→20:48)
[2020-03-09 07:33] VITALS: BP 104/50
[2020-03-09] MEDS: Tiotropium 18 MCG inhalation IH SCH (07:51)
[2020-03-09] MEDS: Budesonide/Formoterol 160/4.5 1 PUFF INH IH SCH (07:51)
[2020-03-09] MEDS: *HR* Metformin 500 MG TABLET PO SCH (08:02)
[2020-03-09] MEDS: Valsartan 80 MG TABLET PO SCH (08:02)
[2020-03-09] MEDS: GlipiZIDE 5 MG TABLET PO SCH (08:02)
[2020-03-09] MEDS: Sennosides/Docusate Sodium TABLET PO SCH (08:03)
[2020-03-09] MEDS: Gabapentin 300 MG CAPSULE PO SCH (08:03)
[2020-03-09] MEDS: polyethylene glycoL 3350 17 GM POWD.PACK PO SCH (08:08)
[2020-03-09] MEDS: *HR* OxyCODONE Immed Rel 15 MG TABLET PO PRN (08:12)
== END 2020-03-09 11:44 | disposition home health service (06) | DRG 560 ==
LOC: INPPIK 02-21 09:25
PROVIDERS: ADMIT Family Medicine; ATTEND Family Medicine

== ENCOUNTER 2021-01-15 12:53 | Inpatient (IN) ==
[2021-01-15] MEDS ORDERED: Ondansetron 4 MG/2 ML VIAL IVP ONE (12:57)
[2021-01-15] MEDS ORDERED: 0.9 % Sodium Chloride 1,000 ML IVC ONE (12:57)
[2021-01-15 13:22] LABS: Basophils % 0.3 %; Eosinophils # 0.1 K/mcL (0.0-0.6); Eosinophils % 1.7 %; Hematocrit 32.7 % (35.3-44.9); Hemoglobin 10.8 g/dL (11.5-15.4); Immature Granulocytes % 0.5 % (0-4); Lymphocytes # 1.1 K/mcL (0.6-4.6); Lymphocytes % 19.8 %; Mean Corpuscular Hemoglobin 32.4 pg (28.0-33.3); Mean Corpuscular Volume 98.2 fL (83.0-100.0); Mean Platelet Volume 9.4 fL (9.4-12.4); Monocytes # 0.4 K/mcL (0.0-1.3); Monocytes % 7.1 %; Neutrophils # 4.1 K/mcL (1.6-8.9); Platelet Count 302 K/mcL (140-400); Red Blood Count 3.33 M/mcL (3.82-4.97); Red Cell Distribution Width 13.2 % (11.5-14.5); Segmented Neutrophils % 70.6 %; White Blood Count 5.8 K/mcL (4.3-11.1)
[2021-01-15 13:34] LABS: Bilirubin,Urine Negative (Negative); Blood,Urine Negative (Negative); Clarity,Urine Clear (Clear); Color,Urine Yellow (Yellow); Glucose,Urine (UA) Normal (Normal); Ketones,Urine 15 mg/dL (Negative); Leukocyte Esterase,Urine Negative (Negative); Nitrite,Urine Negative (Negative); Protein,Urine Negative (Neg-Trace); Specific Gravity,Urine 1.015 (1.010-1.025); Urobilinogen,Urine Normal (Normal)
[2021-01-15 13:38] LABS: Alanine Aminotransferase 39 Units/L (7-52); Albumin 4.2 g/dL (3.5-5.7); Albumin/Globulin Ratio 1.7 (1.1-2.2); Alkaline Phosphatase 47 Units/L (34-104); Aspartate Amino Transferase 17 Units/L (13-39); BUN/Creatinine Ratio 52 (6-26); Bilirubin,Total 0.6 mg/dL (0.3-1.0); Blood Urea Nitrogen 47 mg/dL (8-23); Calcium 10.2 mg/dL (8.6-10.3); Carbon Dioxide 22 mEq/L (23-29); Chloride 102 mEq/L (98-107); Globulin 2.5 g/dL (2.4-3.5); Glucose 213 mg/dL (70-105); Lipase 23 Units/L (11-82); Osmolality,Calculated 297 (280-300); Potassium 4.5 mEq/L (3.5-5.1); Sodium 134 mEq/L (136-145); Total Protein 6.7 g/dL (6.4-8.9); eGFR For African Americans > 60 (> 60); eGFR For Non-African Americans > 60 (> 60)
[2021-01-15] MEDS ORDERED: Naloxone 0.4 MG/ML INJ IVP PRN (14:53)
[2021-01-15] MEDS ORDERED: MOM Conc 10 ML UD.LIQ PO PRN (14:53)
[2021-01-15] MEDS ORDERED: *HR* Enoxaparin 40 MG/0.4 ML SYRINGE SQ ONE (14:56)
[2021-01-15] MEDS ORDERED: Nitroglycerin 0.4 MG TAB.SUBL SL PRN (14:57)
[2021-01-15] MEDS ORDERED: *HR* Dextrose 50 % in Water (Vial) 50 ML VIAL IVP PRN ×2 (15:27→15:28)
[2021-01-15] MEDS ORDERED: Dextrose Gel 15 GM/37.5 ML TUBE PO PRN ×4 (15:27→15:28)
[2021-01-15] MEDS ORDERED: D5% in Water 1,000 ML IVC PRN ×2 (15:27→15:28)
[2021-01-15] MEDS ORDERED: Ondansetron 4 MG/2 ML VIAL IVP PRN (16:22)
[2021-01-15] MEDS: Insulin LISPRO 300 UNITS/3 ML VIAL SUBQ SCH (16:37)
[2021-01-15] MEDS: Gabapentin 300 MG CAPSULE PO SCH ×2 (16:39→21:49)
[2021-01-15] MEDS: 0.9 % Sodium Chloride 1,000 ML IVC SCH (16:46)
[2021-01-15] MEDS: Budesonide/Formoterol 160/4.5 1 PUFF INH IH SCH (20:04)
[2021-01-15] MEDS ORDERED: Insulin LISPRO 300 UNITS/3 ML VIAL SUBQ SCH (21:00)
[2021-01-16] MEDS: 0.9 % Sodium Chloride 1,000 ML IVC SCH ×2 (04:12→17:52)
[2021-01-16 06:44] LABS: Basophils % 0.6 %; Eosinophils # 0.4 K/mcL (0.0-0.6); Eosinophils % 5.2 %; Hematocrit 29.3 % (35.3-44.9); Hemoglobin 9.8 g/dL (11.5-15.4); Immature Granulocytes % 0.3 % (0-4); Lymphocytes # 1.8 K/mcL (0.6-4.6); Lymphocytes % 25.1 %; Mean Corpuscular HGB Conc 33.4 g/dL (31.6-35.5); Mean Corpuscular Hemoglobin 33.3 pg (28.0-33.3); Mean Corpuscular Volume 99.7 fL (83.0-100.0); Mean Platelet Volume 9.6 fL (9.4-12.4); Monocytes # 0.6 K/mcL (0.0-1.3); Monocytes % 8.2 %; Neutrophils # 4.3 K/mcL (1.6-8.9); Platelet Count 268 K/mcL (140-400); Red Blood Count 2.94 M/mcL (3.82-4.97); Red Cell Distribution Width 13.5 % (11.5-14.5); Segmented Neutrophils % 60.6 %; White Blood Count 7.1 K/mcL (4.3-11.1)
[2021-01-16 06:55] LABS: BUN/Creatinine Ratio 34 (6-26); Blood Urea Nitrogen 26 mg/dL (8-23); Carbon Dioxide 24 mEq/L (23-29); Chloride 106 mEq/L (98-107); Glucose 177 mg/dL (70-105); Magnesium 1.7 mg/dL (1.6-2.6); Osmolality,Calculated 295 (280-300); Potassium 4.3 mEq/L (3.5-5.1); Sodium 138 mEq/L (136-145); eGFR For African Americans > 60 (> 60); eGFR For Non-African Americans > 60 (> 60)
[2021-01-16] MEDS: Valsartan 80 MG TABLET PO SCH (08:35)
[2021-01-16] MEDS: amLODIPine 5 MG TABLET PO SCH (08:40)
[2021-01-16] MEDS: Gabapentin 300 MG CAPSULE PO SCH ×3 (08:40→19:46)
[2021-01-16] MEDS: Loratadine 10 MG TABLET PO SCH (08:41)
[2021-01-16] MEDS: Insulin LISPRO 300 UNITS/3 ML VIAL SUBQ SCH ×4 (08:45→21:57)
[2021-01-16] MEDS ORDERED: predniSONE 20 MG TABLET PO SCH (09:00)
[2021-01-16] MEDS: Tiotropium 10 INH DOSE IH SCH (09:02)
[2021-01-16] MEDS: Budesonide/Formoterol 160/4.5 1 PUFF INH IH SCH ×2 (09:03→20:13)
[2021-01-16] MEDS ORDERED: D5% in Water 1,000 ML IVC PRN (09:47)
[2021-01-16] MEDS ORDERED: *HR* Dextrose 50 % in Water (Vial) 50 ML VIAL IVP PRN (09:47)
[2021-01-16] MEDS ORDERED: Dextrose Gel 15 GM/37.5 ML TUBE PO PRN ×2 (09:47)
[2021-01-16] MEDS ORDERED: Insulin LISPRO 300 UNITS/3 ML VIAL SUBQ ONE ×3 (18:10→19:21)
[2021-01-17] MEDS: *HR* Enoxaparin 40 MG/0.4 ML SYRINGE SQ SCH (04:48)
[2021-01-17] MEDS: 0.9 % Sodium Chloride 1,000 ML IVC SCH ×2 (06:02→19:45)
[2021-01-17] MEDS: Tiotropium 10 INH DOSE IH SCH (08:05)
[2021-01-17] MEDS: Budesonide/Formoterol 160/4.5 1 PUFF INH IH SCH ×2 (08:05→20:37)
[2021-01-17] MEDS: Valsartan 80 MG TABLET PO SCH (08:41)
[2021-01-17] MEDS: Gabapentin 300 MG CAPSULE PO SCH ×3 (08:41→19:45)
[2021-01-17] MEDS: Loratadine 10 MG TABLET PO SCH (08:42)
[2021-01-17] MEDS: Insulin LISPRO 300 UNITS/3 ML VIAL SUBQ SCH ×4 (08:42→19:46)
[2021-01-17] MEDS: amLODIPine 5 MG TABLET PO SCH (08:42)
[2021-01-17] MEDS: *HR* Acetaminophen w/Cod 300-30 mg 1 TAB TABLET PO PRN (22:30)
[2021-01-18] MEDS: *HR* Enoxaparin 40 MG/0.4 ML SYRINGE SQ SCH (06:40)
[2021-01-18] MEDS: Tiotropium 10 INH DOSE IH SCH (07:56)
[2021-01-18] MEDS: Budesonide/Formoterol 160/4.5 1 PUFF INH IH SCH ×2 (07:57→21:54)
[2021-01-18 08:38] LABS: Basophils % 0.6 %; Eosinophils # 0.4 K/mcL (0.0-0.6); Eosinophils % 5.7 %; Hematocrit 26.9 % (35.3-44.9); Hemoglobin 8.7 g/dL (11.5-15.4); Immature Granulocytes % 0.3 % (0-4); Lymphocytes # 1.9 K/mcL (0.6-4.6); Lymphocytes % 28.2 %; Mean Corpuscular HGB Conc 32.3 g/dL (31.6-35.5); Mean Corpuscular Hemoglobin 32.2 pg (28.0-33.3); Mean Corpuscular Volume 99.6 fL (83.0-100.0); Mean Platelet Volume 10.1 fL (9.4-12.4); Monocytes # 0.5 K/mcL (0.0-1.3); Monocytes % 7.8 %; Neutrophils # 3.8 K/mcL (1.6-8.9); Platelet Count 233 K/mcL (140-400); Red Cell Distribution Width 13.7 % (11.5-14.5); Segmented Neutrophils % 57.4 %; White Blood Count 6.7 K/mcL (4.3-11.1)
[2021-01-18] MEDS: amLODIPine 5 MG TABLET PO SCH (08:57)
[2021-01-18] MEDS: Valsartan 80 MG TABLET PO SCH (08:57)
[2021-01-18] MEDS: Gabapentin 300 MG CAPSULE PO SCH ×3 (08:58→21:34)
[2021-01-18] MEDS: Loratadine 10 MG TABLET PO SCH (08:58)
[2021-01-18] MEDS: 0.9 % Sodium Chloride 1,000 ML IVC SCH (08:58)
[2021-01-18] MEDS: Insulin LISPRO 300 UNITS/3 ML VIAL SUBQ SCH ×4 (08:58→21:35)
[2021-01-18 09:27] LABS: BUN/Creatinine Ratio 22 (6-26); Blood Urea Nitrogen 15 mg/dL (8-23); Calcium 7.9 mg/dL (8.6-10.3); Carbon Dioxide 24 mEq/L (23-29); Chloride 108 mEq/L (98-107); Glucose 209 mg/dL (70-105); Osmolality,Calculated 291 (280-300); Potassium 4.8 mEq/L (3.5-5.1); Sodium 137 mEq/L (136-145); eGFR For African Americans > 60 (> 60); eGFR For Non-African Americans > 60 (> 60)
[2021-01-18] MEDS: *HR* Acetaminophen w/Cod 300-30 mg 1 TAB TABLET PO PRN (18:12)
[2021-01-18] MEDS: Sennosides/Docusate Sodium TABLET PO SCH (21:34)
[2021-01-19] MEDS ORDERED: *HR* Enoxaparin 30 MG/0.3 ML SYRINGE SQ SCH (06:00)
[2021-01-19] MEDS: Valsartan 80 MG TABLET PO SCH (08:45)
[2021-01-19] MEDS: Gabapentin 300 MG CAPSULE PO SCH ×3 (08:45→21:20)
[2021-01-19] MEDS: Sennosides/Docusate Sodium TABLET PO SCH ×2 (08:45→21:20)
[2021-01-19] MEDS: *HR* Acetaminophen w/Cod 300-30 mg 1 TAB TABLET PO PRN ×2 (08:45→16:58)
[2021-01-19] MEDS: Loratadine 10 MG TABLET PO SCH (08:45)
[2021-01-19] MEDS: amLODIPine 5 MG TABLET PO SCH (08:45)
[2021-01-19] MEDS: Insulin LISPRO 300 UNITS/3 ML VIAL SUBQ SCH ×4 (08:46→21:19)
[2021-01-19] MEDS: Tiotropium 10 INH DOSE IH SCH (10:23)
[2021-01-19] MEDS: Budesonide/Formoterol 160/4.5 1 PUFF INH IH SCH ×2 (10:27→21:15)
[2021-01-19] MEDS: Fluticasone Propionate Nasal 50 MCG/SPRAY BOTTLE NS SCH (16:58)
[2021-01-20] MEDS: *HR* Acetaminophen w/Cod 300-30 mg 1 TAB TABLET PO PRN ×2 (05:21→12:20)
[2021-01-20] MEDS ORDERED: *HR* Enoxaparin 40 MG/0.4 ML SYRINGE SQ SCH (06:00)
[2021-01-20 08:16] LABS: Basophils % 0.5 %; Eosinophils # 0.7 K/mcL (0.0-0.6); Eosinophils % 11.2 %; Hematocrit 27.9 % (35.3-44.9); Immature Granulocytes % 0.2 % (0-4); Lymphocytes # 1.8 K/mcL (0.6-4.6); Lymphocytes % 30.1 %; Mean Corpuscular HGB Conc 32.3 g/dL (31.6-35.5); Mean Corpuscular Hemoglobin 32.6 pg (28.0-33.3); Mean Corpuscular Volume 101.1 fL (83.0-100.0); Mean Platelet Volume 10.3 fL (9.4-12.4); Monocytes # 0.5 K/mcL (0.0-1.3); Monocytes % 8.1 %; Neutrophils # 2.9 K/mcL (1.6-8.9); Platelet Count 233 K/mcL (140-400); Red Blood Count 2.76 M/mcL (3.82-4.97); Red Cell Distribution Width 13.8 % (11.5-14.5); Segmented Neutrophils % 49.9 %; White Blood Count 5.8 K/mcL (4.3-11.1)
[2021-01-20 08:29] LABS: BUN/Creatinine Ratio 29 (6-26); Blood Urea Nitrogen 23 mg/dL (8-23); Carbon Dioxide 31 mEq/L (23-29); Chloride 100 mEq/L (98-107); Glucose 203 mg/dL (70-105); Osmolality,Calculated 287 (280-300); Potassium 5.7 mEq/L (3.5-5.1); Sodium 134 mEq/L (136-145); eGFR For African Americans > 60 (> 60); eGFR For Non-African Americans > 60 (> 60)
[2021-01-20 08:34] VITALS: BP 115/60; PULSE 70; TEMP 97.8
[2021-01-20] MEDS: Valsartan 80 MG TABLET PO SCH (08:56)
[2021-01-20] MEDS: Gabapentin 300 MG CAPSULE PO SCH ×2 (08:56→17:10)
[2021-01-20] MEDS: Loratadine 10 MG TABLET PO SCH (08:56)
[2021-01-20] MEDS: Sennosides/Docusate Sodium TABLET PO SCH (08:56)
[2021-01-20] MEDS: amLODIPine 5 MG TABLET PO SCH (08:56)
[2021-01-20] MEDS: Fluticasone Propionate Nasal 50 MCG/SPRAY BOTTLE NS SCH (08:57)
[2021-01-20] MEDS: Insulin LISPRO 300 UNITS/3 ML VIAL SUBQ SCH ×3 (08:57→17:11)
[2021-01-20] MEDS: Budesonide/Formoterol 160/4.5 1 PUFF INH IH SCH (09:52)
[2021-01-20] MEDS: Tiotropium 10 INH DOSE IH SCH (09:52)
[2021-01-20 09:55] VITALS: RESP 18
[2021-01-20 17:06] VITALS: O2SAT 98
== END 2021-01-20 18:52 | disposition other institution (70) | DRG 178 ==
LOC: EMEROOPIK 12:53 → INPPIK 12:53
PROVIDERS: ADMIT Internal Medicine; ATTEND Internal Medicine

== ENCOUNTER 2021-01-20 16:45 | Inpatient (IN) ==
[2021-01-20] MEDS ORDERED: D5% in Water 1,000 ML IVC PRN (17:03)
[2021-01-20] MEDS ORDERED: *HR* Dextrose 50 % in Water (Vial) 50 ML VIAL IVP PRN (17:03)
[2021-01-20] MEDS ORDERED: Dextrose Gel 15 GM/37.5 ML TUBE PO PRN ×2 (17:03)
[2021-01-20] MEDS ORDERED: Nitroglycerin 0.4 MG TAB.SUBL SL PRN (17:06)
[2021-01-20] MEDS: Gabapentin 300 MG CAPSULE PO SCH (19:37)
[2021-01-20] MEDS: *HR* Metformin 500 MG TABLET PO SCH (19:37)
[2021-01-20] MEDS: *HR* Acetaminophen w/Cod 300-30 mg 1 TAB TABLET PO PRN (19:37)
[2021-01-20] MEDS: Insulin LISPRO 300 UNITS/3 ML VIAL SUBQ SCH (19:45)
[2021-01-20] MEDS: Budesonide/Formoterol 160/4.5 1 PUFF INH IH SCH (22:06)
[2021-01-21] MEDS: *HR* Enoxaparin 40 MG/0.4 ML SYRINGE SQ SCH (06:03)
[2021-01-21 07:53] LABS: Basophils % 0.5 %; Eosinophils # 0.7 K/mcL (0.0-0.6); Eosinophils % 10.1 %; Hematocrit 28.9 % (35.3-44.9); Hemoglobin 9.3 g/dL (11.5-15.4); Immature Granulocytes % 0.2 % (0-4); Lymphocytes # 1.7 K/mcL (0.6-4.6); Lymphocytes % 25.6 %; Mean Corpuscular HGB Conc 32.2 g/dL (31.6-35.5); Mean Corpuscular Hemoglobin 32.7 pg (28.0-33.3); Mean Corpuscular Volume 101.8 fL (83.0-100.0); Mean Platelet Volume 10.3 fL (9.4-12.4); Monocytes # 0.4 K/mcL (0.0-1.3); Monocytes % 6.7 %; Neutrophils # 3.7 K/mcL (1.6-8.9); Platelet Count 246 K/mcL (140-400); Red Blood Count 2.84 M/mcL (3.82-4.97); Red Cell Distribution Width 13.3 % (11.5-14.5); Segmented Neutrophils % 56.9 %; White Blood Count 6.5 K/mcL (4.3-11.1)
[2021-01-21 08:01] LABS: BUN/Creatinine Ratio 25 (6-26); Blood Urea Nitrogen 23 mg/dL (8-23); Carbon Dioxide 32 mEq/L (23-29); Chloride 100 mEq/L (98-107); Glucose 272 mg/dL (70-105); Osmolality,Calculated 295 (280-300); Sodium 136 mEq/L (136-145); eGFR For African Americans > 60 (> 60); eGFR For Non-African Americans 60 (> 60)
[2021-01-21] MEDS: Budesonide/Formoterol 160/4.5 1 PUFF INH IH SCH ×2 (09:31→22:25)
[2021-01-21] MEDS: Tiotropium 10 INH DOSE IH SCH (09:31)
[2021-01-21] MEDS: Fluticasone Propionate Nasal 50 MCG/SPRAY BOTTLE NS SCH (09:50)
[2021-01-21] MEDS: Insulin LISPRO 300 UNITS/3 ML VIAL SUBQ SCH ×4 (09:50→20:44)
[2021-01-21] MEDS: Loratadine 10 MG TABLET PO SCH (09:51)
[2021-01-21] MEDS: Valsartan 80 MG TABLET PO SCH (09:51)
[2021-01-21] MEDS: *HR* Metformin 500 MG TABLET PO SCH ×2 (09:51→20:44)
[2021-01-21] MEDS: Gabapentin 300 MG CAPSULE PO SCH ×3 (09:51→20:43)
[2021-01-21] MEDS: Cyanocobalamin (B-12) 1,000 MCG TABLET PO SCH (09:51)
[2021-01-21] MEDS: *HR* Acetaminophen w/Cod 300-30 mg 1 TAB TABLET PO PRN ×2 (09:52→20:44)
[2021-01-21] MEDS: GlipiZIDE 5 MG TABLET PO SCH (09:52)
[2021-01-21] MEDS: amLODIPine 5 MG TABLET PO SCH (12:22)
[2021-01-22] MEDS: *HR* Acetaminophen w/Cod 300-30 mg 1 TAB TABLET PO PRN ×3 (05:14→21:44)
[2021-01-22] MEDS: *HR* Enoxaparin 40 MG/0.4 ML SYRINGE SQ SCH (05:14)
[2021-01-22] MEDS: *HR* Metformin 500 MG TABLET PO SCH ×2 (09:38→21:43)
[2021-01-22] MEDS: Fluticasone Propionate Nasal 50 MCG/SPRAY BOTTLE NS SCH (09:38)
[2021-01-22] MEDS: Loratadine 10 MG TABLET PO SCH (09:38)
[2021-01-22] MEDS: GlipiZIDE 5 MG TABLET PO SCH (09:38)
[2021-01-22] MEDS: amLODIPine 5 MG TABLET PO SCH (09:38)
[2021-01-22] MEDS: Cyanocobalamin (B-12) 1,000 MCG TABLET PO SCH (09:38)
[2021-01-22] MEDS: Gabapentin 300 MG CAPSULE PO SCH ×3 (09:38→21:43)
[2021-01-22] MEDS: Valsartan 80 MG TABLET PO SCH (09:38)
[2021-01-22] MEDS: Insulin LISPRO 300 UNITS/3 ML VIAL SUBQ SCH ×4 (09:38→21:49)
[2021-01-22] MEDS: Tiotropium 10 INH DOSE IH SCH (11:04)
[2021-01-22] MEDS: Budesonide/Formoterol 160/4.5 1 PUFF INH IH SCH ×2 (11:05→22:41)
[2021-01-23] MEDS: *HR* Enoxaparin 40 MG/0.4 ML SYRINGE SQ SCH (06:17)
[2021-01-23] MEDS: Insulin LISPRO 300 UNITS/3 ML VIAL SUBQ SCH ×5 (06:52→20:46)
[2021-01-23] MEDS: Valsartan 80 MG TABLET PO SCH (09:24)
[2021-01-23] MEDS: Gabapentin 300 MG CAPSULE PO SCH ×3 (09:24→20:46)
[2021-01-23] MEDS: *HR* Metformin 500 MG TABLET PO SCH (09:24)
[2021-01-23] MEDS: Loratadine 10 MG TABLET PO SCH (09:24)
[2021-01-23] MEDS: amLODIPine 5 MG TABLET PO SCH (09:24)
[2021-01-23] MEDS: GlipiZIDE 5 MG TABLET PO SCH (09:24)
[2021-01-23] MEDS: Cyanocobalamin (B-12) 1,000 MCG TABLET PO SCH (09:25)
[2021-01-23] MEDS: Tiotropium 10 INH DOSE IH SCH (09:27)
[2021-01-23] MEDS: Budesonide/Formoterol 160/4.5 1 PUFF INH IH SCH ×2 (09:28→20:07)
[2021-01-23] MEDS: *HR* Acetaminophen w/Cod 300-30 mg 1 TAB TABLET PO PRN ×2 (09:52→20:45)
[2021-01-23] MEDS: Fluticasone Propionate Nasal 50 MCG/SPRAY BOTTLE NS SCH (09:54)
[2021-01-23] MEDS ORDERED: *HR* Dextrose 50 % in Water (Vial) 50 ML VIAL IVP PRN (16:04)
[2021-01-23] MEDS ORDERED: D5% in Water 1,000 ML IVC PRN (16:04)
[2021-01-23] MEDS ORDERED: Dextrose Gel 15 GM/37.5 ML TUBE PO PRN ×2 (16:04)
[2021-01-24] MEDS: *HR* Enoxaparin 40 MG/0.4 ML SYRINGE SQ SCH (06:37)
[2021-01-24] MEDS: Gabapentin 300 MG CAPSULE PO SCH ×3 (09:30→21:24)
[2021-01-24] MEDS: *HR* Acetaminophen w/Cod 300-30 mg 1 TAB TABLET PO PRN ×3 (09:30→23:25)
[2021-01-24] MEDS: Valsartan 80 MG TABLET PO SCH (09:30)
[2021-01-24] MEDS: amLODIPine 5 MG TABLET PO SCH (09:30)
[2021-01-24] MEDS: Loratadine 10 MG TABLET PO SCH (09:31)
[2021-01-24] MEDS: Tiotropium 10 INH DOSE IH SCH (09:31)
[2021-01-24] MEDS: Budesonide/Formoterol 160/4.5 1 PUFF INH IH SCH ×2 (09:31→21:48)
[2021-01-24] MEDS: Cyanocobalamin (B-12) 1,000 MCG TABLET PO SCH (09:31)
[2021-01-24] MEDS: Insulin LISPRO 300 UNITS/3 ML VIAL SUBQ SCH ×4 (09:45→21:24)
[2021-01-24] MEDS: Fluticasone Propionate Nasal 50 MCG/SPRAY BOTTLE NS SCH (09:53)
[2021-01-24] MEDS: Ondansetron ODT 4 MG TAB.RAPDIS PO PRN (11:56)
[2021-01-25] MEDS: *HR* Enoxaparin 40 MG/0.4 ML SYRINGE SQ SCH (06:03)
[2021-01-25] MEDS: Gabapentin 300 MG CAPSULE PO SCH ×3 (08:09→22:12)
[2021-01-25] MEDS: Valsartan 80 MG TABLET PO SCH (08:09)
[2021-01-25] MEDS: amLODIPine 5 MG TABLET PO SCH (08:09)
[2021-01-25] MEDS: Loratadine 10 MG TABLET PO SCH (08:09)
[2021-01-25] MEDS: *HR* Acetaminophen w/Cod 300-30 mg 1 TAB TABLET PO PRN ×3 (08:09→22:11)
[2021-01-25] MEDS: Fluticasone Propionate Nasal 50 MCG/SPRAY BOTTLE NS SCH (08:10)
[2021-01-25] MEDS: Cyanocobalamin (B-12) 1,000 MCG TABLET PO SCH (08:10)
[2021-01-25] MEDS: Insulin LISPRO 300 UNITS/3 ML VIAL SUBQ SCH ×4 (08:10→22:13)
[2021-01-25] MEDS: Ondansetron ODT 4 MG TAB.RAPDIS PO PRN (08:10)
[2021-01-25] MEDS: Budesonide/Formoterol 160/4.5 1 PUFF INH IH SCH ×2 (08:17→22:46)
[2021-01-25] MEDS: Tiotropium 10 INH DOSE IH SCH (08:18)
[2021-01-25 08:44] LABS: Basophils % 0.4 %; Eosinophils # 0.4 K/mcL (0.0-0.6); Eosinophils % 8.6 %; Hematocrit 27.4 % (35.3-44.9); Immature Granulocytes % 0.4 % (0-4); Lymphocytes # 1.2 K/mcL (0.6-4.6); Lymphocytes % 25.3 %; Mean Corpuscular HGB Conc 32.8 g/dL (31.6-35.5); Mean Corpuscular Hemoglobin 33.1 pg (28.0-33.3); Mean Corpuscular Volume 100.7 fL (83.0-100.0); Mean Platelet Volume 10.3 fL (9.4-12.4); Monocytes # 0.4 K/mcL (0.0-1.3); Monocytes % 8.6 %; Neutrophils # 2.8 K/mcL (1.6-8.9); Platelet Count 225 K/mcL (140-400); Red Blood Count 2.72 M/mcL (3.82-4.97); Red Cell Distribution Width 13.4 % (11.5-14.5); Segmented Neutrophils % 56.7 %; White Blood Count 4.9 K/mcL (4.3-11.1)
[2021-01-25 09:00] LABS: BUN/Creatinine Ratio 25 (6-26); Blood Urea Nitrogen 22 mg/dL (8-23); Calcium 9.1 mg/dL (8.6-10.3); Carbon Dioxide 31 mEq/L (23-29); Chloride 99 mEq/L (98-107); Glucose 225 mg/dL (70-105); Osmolality,Calculated 288 (280-300); Potassium 4.9 mEq/L (3.5-5.1); Sodium 134 mEq/L (136-145); eGFR For African Americans > 60 (> 60); eGFR For Non-African Americans > 60 (> 60)
[2021-01-26] MEDS: *HR* Enoxaparin 40 MG/0.4 ML SYRINGE SQ SCH (06:00)
[2021-01-26] MEDS: Tiotropium 10 INH DOSE IH SCH (08:31)
[2021-01-26] MEDS: Budesonide/Formoterol 160/4.5 1 PUFF INH IH SCH ×2 (08:31→20:45)
[2021-01-26] MEDS: Insulin LISPRO 300 UNITS/3 ML VIAL SUBQ SCH ×4 (08:59→20:30)
[2021-01-26] MEDS: Gabapentin 300 MG CAPSULE PO SCH ×3 (09:00→20:31)
[2021-01-26] MEDS: amLODIPine 5 MG TABLET PO SCH (09:00)
[2021-01-26] MEDS: Valsartan 80 MG TABLET PO SCH (09:00)
[2021-01-26] MEDS: Loratadine 10 MG TABLET PO SCH (09:00)
[2021-01-26] MEDS: Fluticasone Propionate Nasal 50 MCG/SPRAY BOTTLE NS SCH (09:00)
[2021-01-26] MEDS: Cyanocobalamin (B-12) 1,000 MCG TABLET PO SCH (09:00)
[2021-01-26] MEDS: *HR* Acetaminophen w/Cod 300-30 mg 1 TAB TABLET PO PRN ×3 (09:04→23:35)
[2021-01-27] MEDS: *HR* Acetaminophen w/Cod 300-30 mg 1 TAB TABLET PO PRN ×3 (05:35→21:45)
[2021-01-27] MEDS: *HR* Enoxaparin 40 MG/0.4 ML SYRINGE SQ SCH (05:36)
[2021-01-27] MEDS: Insulin LISPRO 300 UNITS/3 ML VIAL SUBQ SCH ×4 (08:41→21:44)
[2021-01-27] MEDS: Valsartan 80 MG TABLET PO SCH (08:43)
[2021-01-27] MEDS: Loratadine 10 MG TABLET PO SCH (08:43)
[2021-01-27] MEDS: amLODIPine 5 MG TABLET PO SCH (08:44)
[2021-01-27] MEDS: Nystatin SUSP 5 ML UD.LIQ PO SCH ×4 (08:44→21:45)
[2021-01-27] MEDS: Cyanocobalamin (B-12) 1,000 MCG TABLET PO SCH (08:44)
[2021-01-27] MEDS: Gabapentin 300 MG CAPSULE PO SCH ×3 (08:44→21:45)
[2021-01-27] MEDS: Fluticasone Propionate Nasal 50 MCG/SPRAY BOTTLE NS SCH (08:46)
[2021-01-27] MEDS: Tiotropium 10 INH DOSE IH SCH (10:47)
[2021-01-27] MEDS: Budesonide/Formoterol 160/4.5 1 PUFF INH IH SCH ×2 (10:48→20:58)
[2021-01-28] MEDS: *HR* Enoxaparin 40 MG/0.4 ML SYRINGE SQ SCH (05:50)
[2021-01-28] MEDS: *HR* Acetaminophen w/Cod 300-30 mg 1 TAB TABLET PO PRN ×3 (05:50→21:44)
[2021-01-28] MEDS: Insulin LISPRO 300 UNITS/3 ML VIAL SUBQ SCH ×5 (08:56→21:44)
[2021-01-28] MEDS: Cyanocobalamin (B-12) 1,000 MCG TABLET PO SCH (08:58)
[2021-01-28] MEDS: amLODIPine 5 MG TABLET PO SCH (08:58)
[2021-01-28] MEDS: Gabapentin 300 MG CAPSULE PO SCH ×3 (08:58→21:44)
[2021-01-28] MEDS: Nystatin SUSP 5 ML UD.LIQ PO SCH ×4 (08:59→21:44)
[2021-01-28] MEDS: Loratadine 10 MG TABLET PO SCH (08:59)
[2021-01-28] MEDS: Valsartan 80 MG TABLET PO SCH (08:59)
[2021-01-28] MEDS: Fluticasone Propionate Nasal 50 MCG/SPRAY BOTTLE NS SCH (09:00)
[2021-01-28] MEDS: Budesonide/Formoterol 160/4.5 1 PUFF INH IH SCH ×2 (09:27→22:59)
[2021-01-28] MEDS: Tiotropium 10 INH DOSE IH SCH (09:27)
[2021-01-29] MEDS: *HR* Enoxaparin 40 MG/0.4 ML SYRINGE SQ SCH (06:54)
[2021-01-29] MEDS: Insulin LISPRO 300 UNITS/3 ML VIAL SUBQ SCH ×4 (08:14→20:58)
[2021-01-29] MEDS: *HR* Acetaminophen w/Cod 300-30 mg 1 TAB TABLET PO PRN ×3 (08:15→22:31)
[2021-01-29] MEDS: Nystatin SUSP 5 ML UD.LIQ PO SCH ×4 (08:15→20:58)
[2021-01-29] MEDS: Cyanocobalamin (B-12) 1,000 MCG TABLET PO SCH (08:15)
[2021-01-29] MEDS: Loratadine 10 MG TABLET PO SCH (08:16)
[2021-01-29] MEDS: Valsartan 80 MG TABLET PO SCH (08:16)
[2021-01-29] MEDS: amLODIPine 5 MG TABLET PO SCH (08:16)
[2021-01-29] MEDS: Gabapentin 300 MG CAPSULE PO SCH ×3 (08:16→20:58)
[2021-01-29] MEDS: Fluticasone Propionate Nasal 50 MCG/SPRAY BOTTLE NS SCH (08:16)
[2021-01-29] MEDS: Tiotropium 10 INH DOSE IH SCH (08:33)
[2021-01-29] MEDS: Budesonide/Formoterol 160/4.5 1 PUFF INH IH SCH ×2 (08:33→21:56)
[2021-01-30] MEDS: *HR* Enoxaparin 40 MG/0.4 ML SYRINGE SQ SCH (06:32)
[2021-01-30] MEDS: Fluticasone Propionate Nasal 50 MCG/SPRAY BOTTLE NS SCH (09:10)
[2021-01-30] MEDS: Nystatin SUSP 5 ML UD.LIQ PO SCH ×4 (09:10→21:21)
[2021-01-30] MEDS: Insulin LISPRO 300 UNITS/3 ML VIAL SUBQ SCH ×4 (09:10→21:21)
[2021-01-30] MEDS: Cyanocobalamin (B-12) 1,000 MCG TABLET PO SCH (09:11)
[2021-01-30] MEDS: Loratadine 10 MG TABLET PO SCH (09:11)
[2021-01-30] MEDS: Valsartan 80 MG TABLET PO SCH (09:11)
[2021-01-30] MEDS: Gabapentin 300 MG CAPSULE PO SCH ×3 (09:11→21:20)
[2021-01-30] MEDS: amLODIPine 5 MG TABLET PO SCH (09:11)
[2021-01-30] MEDS: *HR* Acetaminophen w/Cod 300-30 mg 1 TAB TABLET PO PRN ×2 (09:12→21:21)
[2021-01-30] MEDS: Budesonide/Formoterol 160/4.5 1 PUFF INH IH SCH ×2 (10:17→22:55)
[2021-01-30] MEDS: Tiotropium 10 INH DOSE IH SCH (10:18)
[2021-01-30] MEDS: Saline Nasal Spray 44 ML BOTTLE NS PRN (17:11)
[2021-01-31] MEDS: *HR* Enoxaparin 40 MG/0.4 ML SYRINGE SQ SCH (06:06)
[2021-01-31] MEDS: Fluticasone Propionate Nasal 50 MCG/SPRAY BOTTLE NS SCH (09:07)
[2021-01-31] MEDS: amLODIPine 5 MG TABLET PO SCH (09:08)
[2021-01-31] MEDS: Valsartan 80 MG TABLET PO SCH (09:08)
[2021-01-31] MEDS: *HR* Acetaminophen w/Cod 300-30 mg 1 TAB TABLET PO PRN ×2 (09:08→20:17)
[2021-01-31] MEDS: Loratadine 10 MG TABLET PO SCH (09:08)
[2021-01-31] MEDS: Cyanocobalamin (B-12) 1,000 MCG TABLET PO SCH (09:09)
[2021-01-31] MEDS: Insulin LISPRO 300 UNITS/3 ML VIAL SUBQ SCH ×4 (09:09→20:18)
[2021-01-31] MEDS: Nystatin SUSP 5 ML UD.LIQ PO SCH ×4 (09:09→20:20)
[2021-01-31] MEDS: Gabapentin 300 MG CAPSULE PO SCH ×3 (09:09→20:16)
[2021-01-31] MEDS: Budesonide/Formoterol 160/4.5 1 PUFF INH IH SCH ×2 (10:39→22:28)
[2021-01-31] MEDS: Tiotropium 10 INH DOSE IH SCH (10:41)
[2021-01-31] MEDS: Ondansetron ODT 4 MG TAB.RAPDIS PO PRN (18:57)
[2021-01-31] MEDS: Saline Nasal Spray 44 ML BOTTLE NS PRN (20:16)
[2021-02-01] MEDS: *HR* Enoxaparin 40 MG/0.4 ML SYRINGE SQ SCH (07:23)
[2021-02-01] MEDS: amLODIPine 5 MG TABLET PO SCH (09:05)
[2021-02-01] MEDS: Nystatin SUSP 5 ML UD.LIQ PO SCH ×4 (09:05→21:24)
[2021-02-01] MEDS: *HR* Acetaminophen w/Cod 300-30 mg 1 TAB TABLET PO PRN ×2 (09:06→21:23)
[2021-02-01] MEDS: Loratadine 10 MG TABLET PO SCH (09:06)
[2021-02-01] MEDS: Valsartan 80 MG TABLET PO SCH (09:06)
[2021-02-01] MEDS: Cyanocobalamin (B-12) 1,000 MCG TABLET PO SCH (09:06)
[2021-02-01] MEDS: Gabapentin 300 MG CAPSULE PO SCH ×3 (09:06→21:23)
[2021-02-01] MEDS: Fluticasone Propionate Nasal 50 MCG/SPRAY BOTTLE NS SCH (09:09)
[2021-02-01] MEDS: Insulin LISPRO 300 UNITS/3 ML VIAL SUBQ SCH ×4 (09:10→21:25)
[2021-02-01] MEDS: Tiotropium 10 INH DOSE IH SCH (10:17)
[2021-02-01] MEDS: Budesonide/Formoterol 160/4.5 1 PUFF INH IH SCH ×2 (10:18→21:40)
[2021-02-01] MEDS: Ondansetron ODT 4 MG TAB.RAPDIS PO PRN (17:41)
[2021-02-01] MEDS: Saline Nasal Spray 44 ML BOTTLE NS PRN ×2 (17:45→21:30)
[2021-02-01] MEDS ORDERED: polyethylene glycoL 3350 17 GM POWD.PACK PO PRN (19:20)
[2021-02-01 20:36] VITALS: RESP 18
[2021-02-02] MEDS: *HR* Enoxaparin 40 MG/0.4 ML SYRINGE SQ SCH (06:42)
[2021-02-02 07:01] VITALS: BP 127/65; PULSE 92; TEMP 99.3
[2021-02-02] MEDS: Valsartan 80 MG TABLET PO SCH (08:15)
[2021-02-02] MEDS: Loratadine 10 MG TABLET PO SCH (08:15)
[2021-02-02] MEDS: Gabapentin 300 MG CAPSULE PO SCH ×2 (08:15→18:01)
[2021-02-02] MEDS: amLODIPine 5 MG TABLET PO SCH (08:15)
[2021-02-02] MEDS: Nystatin SUSP 5 ML UD.LIQ PO SCH ×3 (08:15→18:00)
[2021-02-02] MEDS: Cyanocobalamin (B-12) 1,000 MCG TABLET PO SCH (08:15)
[2021-02-02] MEDS: Insulin LISPRO 300 UNITS/3 ML VIAL SUBQ SCH ×3 (08:22→18:01)
[2021-02-02] MEDS: Fluticasone Propionate Nasal 50 MCG/SPRAY BOTTLE NS SCH (08:23)
[2021-02-02] MEDS: Budesonide/Formoterol 160/4.5 1 PUFF INH IH SCH (10:31)
[2021-02-02] MEDS: Tiotropium 10 INH DOSE IH SCH (10:33)
[2021-02-02] MEDS: *HR* Acetaminophen w/Cod 300-30 mg 1 TAB TABLET PO PRN (10:53)
[2021-02-02 17:37] VITALS: O2SAT 93
== END 2021-02-02 20:10 | disposition home health service (06) | DRG 945 ==
LOC: INPPIK 18:50
PROVIDERS: ADMIT Family Medicine; ATTEND Family Medicine